=== PATIENT | female | born 1945 | race Caucasian/White ===

== ENCOUNTER → 2016-07-10 | Outpatient (CLI) | payer OTHER | LOC: CIMAGING 09:09 | PROVIDERS: ATTEND Internal Medicine Pulmonary Disease | DX: Z09 Encounter for follow-up examination after completed treatment for conditions other than malignant neoplasm (principal); J84.9 Interstitial pulmonary disease, unspecified; Z87.891 Personal history of nicotine dependence | CPT/HCPCS: 71250-PO ==

== ENCOUNTER 2016-10-07 13:16 | Day surgery (SDC) | payer OTHER ==
[2016-10-07 13:49] VITALS: PULSE 83; TEMP 97.7
[2016-10-07] MEDS ORDERED: NS 500 ML IV ONE (13:49)
[2016-10-07] MEDS ORDERED: LIDOCAINE 1% 300 MG/30 ML SDV ONE (13:50)
[2016-10-07] MEDS ORDERED: EPINEPHrine 1 MG/10 ML SYR IVP ONE (13:50)
[2016-10-07] MEDS ORDERED: fentaNYL 100 MCG/2 ML INJ ONE (13:51)
[2016-10-07] MEDS ORDERED: MIDAZOLAM 2 MG/2 ML VIAL ONE ×2 (13:51)
[2016-10-07] MEDS ORDERED: ALBUTEROL 3 ML DEYVIAL ONE (13:52)
[2016-10-07] MEDS ORDERED: LIDOCAINE 2% JELLY 5 ML TUBE ONE (13:52)
[2016-10-07] MEDS ORDERED: ALBUTEROL 3 ML DEYVIAL IH ONE (14:13)
[2016-10-07] MEDS ORDERED: fentaNYL 100 MCG/2 ML INJ IVP ONE (15:20)
[2016-10-07] MEDS ORDERED: MIDAZOLAM 2 MG/2 ML VIAL IVP ONE (15:20)
[2016-10-07 17:11] VITALS: BP 114/75; RESP 27; O2SAT 94
--- NOTE | 2016-10-07 22:08 | GPN ---
[f rep st] PROCEDURE NOTE Corrected report DATE OF PROCEDURE: 10/07/2016 NAME OF PROCEDURE: Bronchoscopy. INDICATIONS: Interstitial lung disease. DESCRIPTION OF PROCEDURE: Procedure was done in the endoscopy unit in a negative pressure room. Informed consent was obtained from the patient, and 95 masks were worn. Topical anesthesia included 5 cc of 4% lidocaine to the oropharynx and approximately 25 cc of 1% lidocaine to the vocal cords and tracheobronchial tree. Intravenous sedation included 4 mm of Versed and 100 mcg of Fentanyl. Appropriate time-out was performed prior to the procedure. Fiberoptic bronchoscope was passed via bite block orally into the larynx. The vocal cords were identified. The vocal cords were normal, and moved normally with cough and respiration. The bronchoscope was then advanced into the trachea and into the lower tracheobronchial tree bilaterally. All areas were observed to at least 1st subsegmental level. Anatomy was normal bilaterally. There was no significant mucosal erythema or edema. There were no significant secretions. Transbronchial biopsies were taken under fluoroscopic guidance from the right lower lobe and right middle lobe. There were no complications. Bleeding was minor, less than a few cc. All bleeding stopped by the end of the procedure. Chest x-ray following the procedure showed no evidence of a pneumothorax. Some increased infiltrate in the area of her biopsy secondary to blood was seen. FINDINGS: 1. Normal endobronchial anatomy. 2. Interstitial lung disease, query etiology. Pathology will be awaited. /[id number]/MODL Ignacio acc#, 10/08/16, chante LIMA
== END 2016-10-07 16:59 | disposition home or self-care (01) ==
LOC: FSGY 13:16
PROVIDERS: ATTEND Internal Medicine Pulmonary Disease
PROC: 0BB58ZX Excision of Right Middle Lobe Bronchus, Via Natural or Artificial Opening Endoscopic, Diagnostic (ICD-10-PCS; principal; 2016-10-07 14:30)
PROC: 0BB48ZX Excision of Right Upper Lobe Bronchus, Via Natural or Artificial Opening Endoscopic, Diagnostic (ICD-10-PCS; principal; 2016-10-07 14:30)
DX: J84.9 Interstitial pulmonary disease, unspecified (principal); K21.9 Gastro-esophageal reflux disease without esophagitis
CPT/HCPCS: J2250; J3010

== ENCOUNTER → 2016-11-11 | Outpatient (CLI) | payer OTHER | LOC: FIMAGING 09:55 | PROVIDERS: ATTEND Internal Medicine Pulmonary Disease | DX: J84.9 Interstitial pulmonary disease, unspecified (principal) ==

== ENCOUNTER 2016-11-30 05:44 | Inpatient (IN) | payer OTHER ==
[2016-11-30] MEDS ORDERED: ceFAZolin 2 GM/DEXTROSE 100 ML IV ONE (06:00)
[2016-11-30] MEDS ORDERED: LR 1,000 ML IV ONE (06:22)
[2016-11-30] MEDS ORDERED: LIDOCAINE 1% 2 ML INJ ID PRN (06:22)
--- NOTE | 2016-11-30 07:04 | PDANEPAE ---
ANE History of Present Illness 70 year old female w/ PMHx of HTN (treated), hypothyroidism (treated), GERD, bulging disk at L4-L5 (chronic, under treatment) and ILD presents for VATS lung biopsy. ANE Past Medical History - Cardiovascular History Hx Hypertension: Yes Hx Arrhythmias: No Hx Chest Pain: No Hx Coronary Artery / Peripheral Vascular Disease: No Hx CHF / Valvular Disease: No Hx Palpitations: No Cardiovascular History Comment: "palpitations- related to lack of oxygen" on O2 now-diminished - Pulmonary History Hx COPD: No Hx Asthma/Reactive Airway Disease: No Hx Recent Upper Respiratory Infection: No Hx Oxygen in Use at Home: No Hx Sleep Apnea: No Sleep Apnea Screening Result - Last Documented: Negative Pulmonary History Comment: Interstitial lung disease. SOB w/exertional activities. Dr villatoro - Neurologic History Hx Cerebrovascular Accident: No Hx Seizures: No Hx Dementia: No - Endocrine History Hx Diabetes: No Hypothyroid: Yes Hyperthyroid: No Obesity: no Endocrine History Comment: hypothyroid - Renal History Hx Renal Disorders: No - Liver History Hx Hepatic Disorders: No - Neurological & Psychiatric Hx Hx Neurological and Psychiatric Disorders: Yes Neurological / Psychiatric History Comment: Sees chiropractor 2x/mo per bulging L4/L5 disc -chronic. - Cancer History Hx Cancer: No - Congenital Disorder History Hx Congenital Disorders: No - GI History GERD: mild Hx Gastrointestinal Disorders: Yes Gastrointestinal History Comment: GERD. Loose stool w/prednisone. 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 Nile. seasonal allergies - Chronic Pain History Chronic Pain: No - Surgical History Prior Surgeries: R knee scope,. breast augmentation;. breast implants removed ;. Karen. Hysterectmy/BSO. parathyroidectomy. thumb sx ANE Review of Systems Review of Systems: - Exercise capacity Exercise capacity: >=4 METS METS (RN): 4 METS ANE Patient History - Allergies Allergies/Adverse Reactions: SEASONAL Allergy (Uncoded 07/06/11 18:42) Other-Enter Comments - Home Medications Home medications: home medication list seen and reviewed Home Medications: Levothyroxine [Synthroid 75 mcg (*)] 75 mcg PO DAILY06 09/30/16 [Last Taken 09:00] Ranitidine HCl [Zantac] 150 mg PO DAILY18 09/30/16 [Last Taken 11/29/16 19:00] amLODIPine BESYLATE [Norvasc 5 mg (*)] 5 mg PO DAILY18 09/30/16 [Last Taken 19:00] Esomeprazole Mag Trihydrate [Nexium] 40 mg PO DAILY 11/27/16 [Last Taken 08:00] Estradiol [Estradiol 1 MG (*)] 1 mg PO DAILY18 11/27/16 [Last Taken 11/29/16 22: 00] Loratadine [Claritin 10 mg] 10 mg PO DAILY18 11/27/16 [Last Taken 11/29/16 19:00 ] RX: predniSONE 60 mg PO DAILY 11/27/16 [Last Taken 11/29/16 05:00] Tears/Dextran 70/Hypromellose [Natural Balance Tears (*)] 1 drop EACHEYE DAILY PRN 11/27/16 [Last Taken 11/29/16 08:00] - NPO status NPO Status: no food or drink >8 hours NPO Since - Liquids (Date): 11/29/16 NPO Since - Liquids (Time): 23:30 NPO Since - Solids (Date): 11/29/16 NPO Since - Solids (Time): 22:00 - Anes Hx Anes Hx: no prior problems - Smoking Hx Smoking Status: Never smoked Marijuana use: No - Alcohol Use Alcohol Use: Rarely - Family Anes Hx Family Anes Hx: neg - N/A ANE Labs/Vital Signs - Vital Signs Vital Signs: reviewed preoperatively; see RN documention for details Blood Pressure: 140/87 Heart Rate: 88 Respiratory Rate: 14 O2 Sat (%): 93 Height: 165.1 cm Weight: 67.585 kg ANE Physical Exam - Airway Neck exam: FROM Mallampati Score: Class 2 Mouth exam: normal dental/mouth exam - Pulmonary Pulmonary: no respiratory distress - Cardiovascular Cardiovascular: regular rate and rhythym - ASA Status ASA Status: III ANE Anesthesia Plan Anesthesia Plan: general endotracheal anesthesia Specialized Airway: double lumen tube Total IV Anesthesia: No
[2016-11-30] MEDS ORDERED: MIDAZOLAM 2 MG/2 ML VIAL IVP ONE (07:05)
[2016-11-30] MEDS ORDERED: MIDAZOLAM 2 MG/2 ML VIAL ONE (07:08)
--- NOTE | 2016-11-30 07:10 | PDHPUP ---
History & Physical Update H&P update statement: This history and physical update is based on an assessment of the patient which was completed after admission or registration (within 24 hours), but prior to the surgery/procedure.
[2016-11-30] MEDS ORDERED: PROPOFOL 200 MG/20 ML VIAL ONE (07:14)
[2016-11-30] MEDS ORDERED: LIDOCAINE 2% 5 ML SDV ONE (07:15)
[2016-11-30] MEDS ORDERED: ROCURONIUM 50 MG/5 ML VIAL ONE (07:15)
[2016-11-30] MEDS ORDERED: fentaNYL 100 MCG/2 ML INJ ONE ×3 (07:15→10:43)
[2016-11-30] MEDS ORDERED: SUGAMMADEX SODIUM 200 MG/2 ML VIAL IVP ONE (08:08)
[2016-11-30] MEDS ORDERED: KETOROLAC 30 MG/1 ML SDV ONE (08:08)
[2016-11-30] MEDS ORDERED: ONDANSETRON 4 MG/2 ML VIAL ONE (08:08)
[2016-11-30] MEDS: BUPIVACAINE 0.25% 30 ML SDV ONE ×2 (08:20→11:17)
[2016-11-30] MEDS ORDERED: ONDANSETRON 4 MG/2 ML VIAL IVP PRN ×2 (08:43→08:55)
[2016-11-30] MEDS ORDERED: NS 1,000 ML IV SCH (08:45)
[2016-11-30] MEDS ORDERED: NALOXONE HCL 0.4 MG/ML INJ IVP PRN (08:55)
[2016-11-30] MEDS ORDERED: LR 500 ML IV PRN (08:55)
[2016-11-30] MEDS ORDERED: HYDROmorphONE/DILAUDID 1 MG/ML INJ IVP PRN (08:55)
[2016-11-30] MEDS ORDERED: OXYCODONE/APAP 5/325 TAB PO PRN (08:55)
[2016-11-30] MEDS ORDERED: LACTULOSE 20 GM/30 ML UDCUP PO PRN (08:57)
[2016-11-30] MEDS ORDERED: ACETAMINOPHEN 500 MG TAB PO PRN (08:57)
[2016-11-30] MEDS ORDERED: MAGNESIUM HYDROXIDE 30 ML UDCUP PO PRN (08:57)
[2016-11-30] MEDS ORDERED: BISACODYL 10 MG SUPP PR PRN (08:57)
[2016-11-30] MEDS ORDERED: POLYETHYLENE GLYCOL 3350 17 GM PKT PO PRN (08:57)
[2016-11-30] MEDS ORDERED: traMADol 50 MG TAB PO PRN (08:57)
[2016-11-30] MEDS: fentaNYL 100 MCG/2 ML INJ IVP PRN ×3 (09:07→10:45)
--- NOTE | 2016-11-30 09:31 | POSTANESTH ---
Post Anesthetic Evaluation Cardiovascular Status: Normal, Stable, Similar to Pre-Op Cond Respiratory Status: Normal, Stable, Similar to Pre-op Cond. Level of Consciousness/Mental Status: Can Participate in Eval Pain Control: Adequate, Prn Tx Ordered Nausea/Vomiting Control: Adequate, Prn Tx Ordered Complications Possibly Related to Anesthesia: None Noted
--- NOTE | 2016-11-30 09:37 | GOP ---
[f rep st] OPERATIVE REPORT DATE OF OPERATION: 11/30/2016 SURGEON: Alexander Hester DO ZUMBA INSTRUCTOR: Genie Nair PA-C. ANESTHESIOLOGIST: Nader Spence MD PREOPERATIVE DIAGNOSIS: Interstitial lung disease of uncertain etiology. POSTOPERATIVE DIAGNOSIS: Interstitial lung disease of uncertain etiology. PROCEDURE PERFORMED: Left video-assisted thoracoscopic lung biopsy x2 from the upper and lower lobes . FINDINGS: DESCRIPTION OF PROCEDURE: Patient was consented for surgery and brought to the operating room. A do uble-lumen endotracheal tube was placed. Three portals were placed in the lateral chest wall under c amera guidance. A markedly abnormal lung was identified. The lingular section was excised with a st apler without evidence of air leak or bleeding. We then biopsied the anterior portion of the left lo wer lobe as well, which was markedly abnormal. No bleeding was encountered. The chest was irrigated a single chest tube was placed. 0.25% Marcaine with epinephrine was used to infiltrate the intercost al spaces. A Pleur-evac was connected. There was no air leak at the completion of procedure. Wound s were closed in standard fashion. Patient was returned to the recovery room in stable condition. /[id number]/MODL
[2016-11-30] MEDS: THROMBIN(HUM PLAS)/FIBRINOG/CA 5 ML VIAL TP ONE ×2 (11:18→13:13)
[2016-11-30] MEDS: HYDROCODONE/APAP 5/325 TAB PO PRN ×3 (12:26→20:53)
[2016-11-30] MEDS: KETOROLAC 15 MG/1 ML SDV IVP SCH ×2 (13:26→17:39)
[2016-11-30] MEDS ORDERED: TEARS/DEXTRAN 70/HYPROMELLOSE 15 ML OPHT.BTL EACHEYE PRN (14:00)
[2016-11-30] MEDS ORDERED: HYDROCORTISONE 100 MG/2 ML VIAL IVP ONE (16:00)
[2016-11-30] MEDS: ceFAZolin 2 GM/DEXTROSE 100 ML IV SCH ×2 (16:20→21:10)
--- NOTE | 2016-11-30 16:20 | ASMTCMCOM ---
CM Note CM Note Notes: 11/30/2016 Case Management Note Reviewed chart. Pt admitted for VATS biopsy. No case management d/c needs identfiied d/t pt age and marital status. No therapy evals ordered. Case Management d/c poc: home independent when medically stable. Case Management available if needs change. Date Signed: 11/30/2016 04:20 PM Electronically Signed By:Liz Ivy RN
[2016-11-30] MEDS ORDERED: amLODIPine BESYLATE 5 MG TAB PO SCH (18:00)
[2016-11-30] MEDS ORDERED: NON-FORMULARY NEW DRUG (Ranitidine Hcl [Zantac] 150 MG) PO SCH (18:00)
[2016-11-30] MEDS ORDERED: NON-FORMULARY NEW DRUG (Loratadine [Claritin 10 Mg] 10 MG) PO SCH (18:00)
[2016-11-30 19:30] VITALS: RESP 16
[2016-11-30] MEDS: SENNOSIDES/DOCUSATE SODIUM TAB PO SCH (20:48)
[2016-11-30] MEDS: HEPARIN 5,000 UNIT/0.5 ML SYR SC SCH ×2 (20:49→22:13)
[2016-12-01] MEDS: KETOROLAC 15 MG/1 ML SDV IVP SCH ×2 (00:27→06:26)
[2016-12-01 04:51] LABS: HEMATOCRIT 39.9 % (38.0-47.0); HEMOGLOBIN 13.4 g/dL (12.6-16.3); MEAN CELL HEMOGLOBIN 32.1 pg (27.9-34.1); MEAN CELL HEMOGLOBIN CONCENTR. 33.6 g/dL (32.4-36.7); MEAN CELL VOLUME 95.7 fL (81.5-99.8); RED BLOOD CELL COUNT 4.17 10^6/uL (4.18-5.33); RED CELL DISTRIBUTION WIDTH 12.6 % (11.5-15.2)
[2016-12-01 04:57] LABS: ANION GAP 7 mEq/L (8-16); CALCIUM 8.4 mg/dL (8.5-10.4); CARBON DIOXIDE 26 mEq/l (22-31); CHLORIDE 102 mEq/L (97-110); CREATININE 0.5 mg/dL (0.6-1.0); GLOMERULAR FILTRATION RATE > 60; GLUCOSE 89 mg/dL (70-100); POTASSIUM 4.2 mEq/L (3.5-5.2); SODIUM 135 mEq/L (134-144)
[2016-12-01] MEDS ORDERED: LEVOTHYROXINE 75 MCG TAB PO SCH (06:00)
[2016-12-01] MEDS: HEPARIN 5,000 UNIT/0.5 ML SYR SC SCH (06:26)
--- NOTE | 2016-12-01 08:03 | SOAPPROG ---
SOAP Progress Note Assessment/Plan: POD #1: Left VATS with upper and lower lung biopsies Interstitial lung disease/hypoxemia - Possible removal of CT later today - Continue O2 and prednisone - Pathology pending - SCDs/Lovenox SQ for DVT prophylaxis Acute blood loss anemia - Stable without the need for blood product transfusions Subjective: Feels well. Pain well-controlled. Able to take deep breaths. Slept well. Objective: Vital Signs Temp Pulse Resp BP Pulse Ox 36.8 C 68 16 121/71 H 97 12/01/16 04:00 12/01/16 04:00 12/01/16 04:00 12/01/16 04:00 12/01/16 04:00 Microbiology 11/30/16 08:10 Mycobacterial Smear (CRESENCIO) - Final Lung Left Upper Lobe - Tissue 11/30/16 08:10 Gram Stain - Final Lung - Tissue Laboratory Results 12/01/16 04:04 12/01/16 04:04 11/30/16 12/01/16 12/02/16 05:59 05:59 05:59 Intake Total 3545 Output Total 1383 83 Balance 2162 -83 Physical Exam - Physical Exam General Appearance: WD/WN, alert, no apparent distress EENT: No scleral icterus (R), No scleral icterus (L) Neck: normal inspection Respiratory: other (CT without air leak), No respiratory distress Cardiac/Chest: regular rate, rhythm Abdomen: No distended Skin: normal color, warm/dry Extremities: No pedal edema Neuro/Psych: no motor/sensory deficits, alert, normal mood/affect, oriented x 3 ICD10 Worksheet Patient Problems: Problems Problem Status Onset s/p LVATS lung biopsies Acute ~11/30/16 Chronic steroid use Chronic ILD (interstitial lung disease) Chronic
[2016-12-01 08:11] VITALS: BP 116/82; PULSE 74; TEMP 97.9; O2SAT 94
[2016-12-01] MEDS: SENNOSIDES/DOCUSATE SODIUM TAB PO SCH (08:48)
[2016-12-01] MEDS ORDERED: ENOXAPARIN 40 MG/0.4 ML SYR SC SCH (09:00)
[2016-12-01] MEDS ORDERED: ESOMEPRAZOLE MAG TRIHYDRATE 40 MG PO SCH (09:00)
[2016-12-01] MEDS ORDERED: predniSONE 20 MG TAB PO SCH (09:00)
--- NOTE | 2016-12-01 10:43 | PDDCSUM ---
Discharge Summary Discharge Summary: ADMISSION DATE: 12/01/16 DISCHARGE DATE: 12/02/16 ADMISSION DX: 1. Interstitial lung disease of unknown etiology DISCHARGE DX: 1. Interstitial lung disease of unknown etiology 2. Acute blood loss anemia PROCEDURES 12/01/16, Alexander Hester: 1. Left VATS with lung biopsies taken from upper and lower lobes HOSPITAL COURSE BY PROBLEM LIST 1. Interstitial lung disease of unknown etiology - s/p left VATS with biopsies taken from upper and lower lobes. Pathology pending. Continue prednisone and oxygen therapy as prescribed 2. Acute blood loss anemia - stable without the need for blood product transfusions. CONDITION Good DISPOSITION Home ACTIVITY Pt was instructed on sternal precautions, activity limitations, and which problems to call [facility] with. Please see Discharge Plan in chart for specifics. MEDICATIONS 1. Levothyroxine [Synthroid 75 mcg (*)] 75 mcg PO DAILY06 2. Ranitidine HCl [Zantac] 150 mg PO DAILY18 3. amLODIPine BESYLATE [Norvasc 5 mg (*)] 5 mg PO DAILY18 4. Esomeprazole Mag Trihydrate [Nexium] 40 mg PO DAILY 5. Estradiol [Estradiol 1 MG (*)] 1 mg PO DAILY18 6. Loratadine [Claritin 10 mg] 10 mg PO DAILY18 7. Tears/Dextran 70/Hypromellose [Natural Balance Tears (*)] 1 drop EACHEYE DAILY PRN 8. predniSONE 60 mg PO DAILY 9. Acetaminophen [Tylenol ES 500 mg (*)] 500 mg PO Q6HRS PRN 10. Ibuprofen 600 mg PO Q6 PRN 11. Oxygen as prescribed PENDING STUDIES/LABS 1. CXR prior to surgical follow-up F/U APPOINTMENTS 1. Alexander Hester: 12/08/16, 9:45 AM
[2016-12-01] MEDS ORDERED: Ranitidine Hcl [Zantac] 150 MG PO SCH (18:00)
[2016-12-01] MEDS ORDERED: LORATADINE 10 MG PO SCH (18:00)
[2016-12-01] MEDS ORDERED: ESTRADIOL 1 MG TAB PO SCH (18:00)
== END 2016-12-01 11:06 | disposition home or self-care (01) | DRG 167 ==
LOC: F3N 05:44 → F2W 10:58
PROVIDERS: ADMIT Thoracic Surgery (Cardiothoracic Vascular Surgery); ATTEND Thoracic Surgery (Cardiothoracic Vascular Surgery)
PROC: 0BBG4ZX Excision of Left Upper Lung Lobe, Percutaneous Endoscopic Approach, Diagnostic (ICD-10-PCS; principal; 2016-11-30 07:15)
PROC: 0BBJ4ZX Excision of Left Lower Lung Lobe, Percutaneous Endoscopic Approach, Diagnostic (ICD-10-PCS; principal; 2016-11-30 07:15)
DX: J84.9 Interstitial pulmonary disease, unspecified (principal); D62 Acute posthemorrhagic anemia; I10 Essential (primary) hypertension; E03.9 Hypothyroidism, unspecified; K21.9 Gastro-esophageal reflux disease without esophagitis; Z79.52 Long term (current) use of systemic steroids
CPT/HCPCS: J0171; J0690; J1650; J1885; J2250; J2405; J2704; J3010

== ENCOUNTER → 2016-12-07 | Outpatient (CLI) | payer OTHER | LOC: FIMAGING 12:12 | PROVIDERS: ATTEND Thoracic Surgery (Cardiothoracic Vascular Surgery) | DX: Z98.890 Other specified postprocedural states (principal) ==

== ENCOUNTER 2017-04-25 21:41 | Inpatient (IN) | payer OTHER ==
[2017-04-25] MEDS ORDERED: PANTOPRAZOLE SODIUM 40 MG VIAL IVP ONE (21:52)
[2017-04-25] MEDS ORDERED: NS 500 ML IV ONE (21:52)
--- NOTE | 2017-04-25 22:01 | EDPHY ---
H & P Time Seen by Provider: 04/25/17 21:52 HPI/ROS: HPI Shortness of breath, blood in stool. 71-year-old female by ambulance from home. This patient has a history of advancing idiopathic pulmonary fibrosis. She is oxygen dependent at home. Recently she has been requiring 6 L of oxygen by nasal cannula during the day and 5 L at night. She reports that in December she started a new medication called Ofev for her pulmonary fibrosis. This is an immune modulator. She reports that 1 of the side effects is diarrhea as well as stomach ulcerations. She reports that for the last 6 weeks she has had diarrhea. She reports today she noticed that she had blood on her toilet paper after an episode of this diarrhea. She also was more short of breath today despite 6 L of nasal cannula oxygen at home. On EMS arrival her pulse oximetry was in the 70s. She reports to me that while on 6 L her pulse oximetry got as low as in the 40s earlier today. ROS: Constitutional: No fever, no chills. No weakness. Eyes: No discharge. No changes in vision. ENT: No sore throat. No nasal congestion or rhinorrhea. Respiratory: No cough. As above. Cardiac: No chest pain, no palpitations. Gastrointestinal: No abdominal pain, no vomiting, as above. Genitourinary: No hematuria. No dysuria or increased frequency with urination. Musculoskeletal: No back pain. No neck pain. No myalgias or arthralgias. Skin: No rashes. Neurological: No headache. No focal weakness or altered sensation. Past medical history: Idiopathic pulmonary fibrosis, hypertension, hypothyroid. Her v block saw operator is Dr. Audi Gillis. Social history: Nonsmoker. No alcohol. She is . Her is on the way to the emergency department currently. Physical Exam: General Appearance: Alert, dyspneic, mildly cyanotic. This patient is responding to questions appropriately in short sentences. This patient appears well-hydrated and well-nourished. Eyes: Pupils equal and round no pallor or injection. No lid edema, erythema or injection. ENT, Mouth: Mucous membranes are moist. The pharyngeal tissues are unremarkable. No edema or swelling. No asymmetry suggestive of abscess. No erythema or exudates. Respiratory: Lung sounds are shallow and distant bilaterally. She is tachypneic at 24. Cardiovascular: Regular rate and rhythm. No murmur appreciated. Gastrointestinal: Abdomen is soft and nontender, no masses, bowel sounds normal. No focal tenderness at McBurney's point. No Wong sign. Rectal exam: Neurological: Motor sensory function is grossly intact. Cranial nerves are normal. Gait is normal. Skin: Warm and dry, no rashes. Musculoskeletal: Neck is supple and nontender. Extremities are symmetrical. All joints range without pain or impingement. Psychiatric: No agitation. No depression. Database: EKG: EKG time is 10:25 p.m.; EKG shows a narrow complex normal sinus rhythm with a ventricular rate of 88. Left anterior fascicular block noted. Left ventricular hypertrophy noted. The MN, QRS, QT intervals are within normal limits. Nonspecific T-wave abnormalities noted in the inferior leads. There are no ST- T wave changes indicative of ischemic or injury pattern. No evidence of right heart strain. Interpreted by me. Imaging: Chest x-ray PA and lateral; the cardiac mediastinal silhouette is unremarkable. Bilateral infiltrative process, worse on the left versus the right. Likely pneumonia superimposed over changes from pulmonary fibrosis. No other acute cardiopulmonary disease process noted. Interpreted by me. Procedures: Emergency department course: IV was placed, vital signs reviewed. Only SIRS criteria is tachypnea. She otherwise does not meet definition of sepsis. Chest x-ray and EKG obtained. After review of her chest x-ray she was started on IV Solu-Medrol as well as IV Levaquin for treatment of pneumonia with underlying pulmonary fibrosis exacerbation. Blood cultures have been obtained. Respiratory pathogen panel has also been ordered. 11:00 p.m., spoke with her v block saw operator Dr. Audi Gillis. Case reviewed with him in detail. He agrees with above management. Plan will be to admit to the step-down unit under the care of the hospitalist service. 11:05 p.m., patient re-evaluated. She feels comfortable at this time. No chest pain. Results of her workup at this time discussed with her and family. Diagnosis of pneumonia discussed. Antibiotic choice and reasoning for Solu- Medrol administration discussed with family. Plan for admission reviewed. All of their questions were answered. 11:10 p.m., discussed case with on-call hospitalist Dr. Pearce. Case discussed in detail with her. She will see this patient in the emergency department shortly. Results of respiratory pathogen panel are currently pending. Troponin noted to be elevated at 1.8. This is likely secondary to pulmonary hypertension as well as hypoxia. She has had no complaint of chest pain. Her EKG does not show any acute injury pattern. Nonspecific diffuse T-wave inversions noted. Dr. Pearce to follow up on results of respiratory pathogen panel as well as venous lactate. The patient's remaining emergency department course under my care has been uneventful. She will be admitted to the step- down unit shortly. Differential Diagnosis: The differential diagnosis on this patient includes but is not limited to pneumonia, pulmonary fibrosis exacerbation, elevated troponin, hematochezia. Acute upper gastrointestinal bleeding, acute coronary syndrome unlikely. This represents a partial list of diagnoses considered. These considerations are based on history, physical exam, past history, reassessment and diagnostic testing. Smoking Status: Never smoked Constitutional: Initial Vital Signs Temperature (C) 36.7 C 04/25/17 21:51 Heart Rate 96 04/25/17 21:51 Respiratory Rate 30 H 04/25/17 21:51 Blood Pressure 125/114 H 04/25/17 21:51 O2 Sat (%) 94 04/25/17 21:51 O2 Delivery Mode Non-Rebreather Mask O2 (L/minute) 15 Allergies/Adverse Reactions: SEASONAL Allergy (Uncoded 07/06/11 18:42) Other-Enter Comments Home Medications: Medication Instructions Recorded Levothyroxine [Synthroid 75 mcg 75 mcg PO DAILY06 09/30/16 (*)] Ranitidine HCl [Zantac] 150 mg PO HS 09/30/16 amLODIPine BESYLATE [Norvasc 5 mg 5 mg PO HS 09/30/16 (*)] Esomeprazole Mag Trihydrate 40 mg PO DAILY 11/27/16 [Nexium] predniSONE 40 mg PO DAILY 11/27/16 Albuterol [Proventil Inhaler HFA 1 - 2 puffs IH Q4H PRN 04/26/17 (*)] Aspirin [Aspirin 81mg (*)] 81 mg PO HS 04/26/17 Cholecalciferol Vit D3 [Vitamin D3 2,000 units PO DAILY 04/26/17 2000 units tab (OTC)] Codeine Phosphate/Guaifenesin 10 ml PO Q4HRS PRN 04/26/17 [Robafen AC Oral Solution] Medical Decision Making - Data Points Laboratory Results: Laboratory Results 04/25/17 21:51 04/25/17 21:51 Medications Given: Albuterol/Ipratropium (Duoneb) 3 ml IH QID [facility] Stop: 10/23/17 05:59 Last Admin: 04/27/17 11:09 Dose: 3 ml Amlodipine Besylate (Norvasc) 5 mg PO HS [facility] Stop: 10/23/17 20:59 Last Admin: 04/26/17 20:50 Dose: 5 mg Aspirin (Aspirin) 81 mg PO HS [facility] Stop: 10/23/17 20:59 Last Admin: 04/26/17 20:49 Dose: 81 mg Benzonatate (Tessalon Pearles) 100 mg PO TID PRN PRN Reason: Cough, Mild Stop: 10/23/17 00:14 Last Admin: 04/27/17 09:32 Dose: 100 mg Cholecalciferol (Vitamin D) 2,000 units PO DAILY [facility] Stop: 10/24/17 08:59 Last Admin: 04/27/17 09:32 Dose: 2,000 units Enoxaparin Sodium (Lovenox) 40 mg SC DAILY [facility] Stop: 10/24/17 11:44 Last Admin: 04/27/17 12:00 Dose: 40 mg Guaifenesin/Dextromethorphan (Robitussin Dm Oral Liquid) 10 ml PO Q4HRS PRN PRN Reason: Cough, Moderate Stop: 10/23/17 09:47 Last Admin: 04/27/17 11:26 Dose: 10 ml Sodium Chloride (Ns) 1,000 mls @ 75 mls/hr IV CONT [facility] Stop: 10/22/17 23:14 Last Admin: 04/26/17 10:29 Dose: 1,000 mls Levofloxacin/Dextrose (Levaquin 750 Mg (Premix)) 150 mls @ 100 mls/hr IV DAILY@ 2200 [facility] Stop: 05/26/17 21:59 Last Admin: 04/26/17 21:00 Dose: 150 mls Levothyroxine Sodium (Synthroid) 75 mcg PO DAILY06 [facility] Stop: 10/24/17 05:59 Last Admin: 04/27/17 04:29 Dose: 75 mcg Methylprednisolone Sodium Succinate (Solu-Medrol) 60 mg IVP Q12HRS [facility] Stop: 10/23/17 08:59 Last Admin: 04/27/17 09:32 Dose: 60 mg Morphine Sulfate (Morphine) 2 - 4 mg IVP Q3HRS PRN PRN Reason: Pain, Breakthrough Stop: 05/06/17 00:13 Last Admin: 04/27/17 04:29 Dose: 2 mg Pantoprazole Sodium (Protonix) 40 mg PO DAILY [facility] Stop: 10/24/17 08:59 Last Admin: 04/27/17 09:32 Dose: 40 mg Discontinued Medications Sodium Chloride (Ns) 500 mls @ 1,000 mls/hr IV EDNOW ONE PRN Reason: Protocol Stop: 04/25/17 22:21 Last Admin: 04/25/17 22:06 Dose: 500 mls Levofloxacin/Dextrose (Levaquin 750 Mg (Premix)) 150 mls @ 100 mls/hr IV EDNOW ONE PRN Reason: Protocol Stop: 04/26/17 00:04 Last Admin: 04/25/17 22:40 Dose: 150 mls Magnesium Sulfate (Magnesium Sulf 2 Gm (Premix)) 50 mls @ 50 mls/hr IV ONCE ONE Stop: 04/26/17 12:11 Last Admin: 04/26/17 11:30 Dose: 50 mls Methylprednisolone Sodium Succinate (Solu-Medrol) 125 mg IVP EDNOW ONE Stop: 04/25/17 22:50 Last Admin: 04/25/17 23:16 Dose: 125 mg Pantoprazole Sodium (Protonix) 80 mg IVP EDNOW ONE Stop: 04/25/17 21:53 Last Admin: 04/25/17 22:07 Dose: 80 mg Potassium Chloride (Klor-Con) 40 meq PO ONCE ONE Stop: 04/26/17 10:46 Last Admin: 04/26/17 10:56 Dose: 40 meq Departure - Departure Disposition: [facility] Acute Clinical Impression: Pneumonia, Hypoxia, Elevated troponin, Hematochezia, Pulmonary fibrosis
[2017-04-25] MEDS ORDERED: PANTOPRAZOLE SODIUM 40 MG VIAL ONE (22:08)
[2017-04-25 22:20] LABS: PLATELET COUNT 459 10^3/uL (150-400)
--- NOTE | 2017-04-25 22:27 | CPEKG ---
Heart Rate: 88 RR Interval: 682 P-R Interval: 136 QRSD Interval: 102 QT Interval: 408 QTC Interval: 494 P [place]: 41 QRS [place]: -40 T Wave [place]: -19 EKG Severity - ABNORMAL ECG - EKG Impression: SINUS RHYTHM EKG Impression: LEFT ANTERIOR FASCICULAR BLOCK EKG Impression: LEFT VENTRICULAR HYPERTROPHY EKG Impression: NONSPECIFIC T ABNORMALITIES, INFERIOR LEADS EKG Impression: BORDERLINE PROLONGED QT INTERVAL Electronically Signed By: Yogesh Mcbride 25-Apr-2017 23:22:34
[2017-04-25 22:29] LABS: INR 1.09 (0.83-1.16); PROTIME(PATIENT) 14.3 SEC (12.0-15.0)
[2017-04-25] MEDS ORDERED: methylPREDNISolone SOD SUCC 125 MG/2 ML VIAL IVP ONE (22:49)
[2017-04-25] MEDS ORDERED: ALBUTEROL 3 ML DEYVIAL IH PRN (23:13)
[2017-04-25] MEDS ORDERED: ONDANSETRON 4 MG/2 ML VIAL IVP PRN (23:13)
[2017-04-25] MEDS ORDERED: ACETAMINOPHEN 325 MG TAB PO PRN (23:13)
--- NOTE | 2017-04-25 23:32 | PDGENHP ---
History and Physical - Chief Complaint shortness of breath - History of Present Illness Source-patient provides history appears reliable. EMR reviewed and case discussed with ED provider. HPI - this is a pleasant 71-year-old female with past medical history significant for idiopathic pulmonary fibrosis, hypothyroidism, HTN, GERD who presents emergency department today with complaints of progressively worsening dyspnea. Patient reports that she has had increased cough productive of clear phlegm for the last several days. She has also had increasing shortness of breath with requirements increased her oxygen up to 6 L. Patient has had been put on azithromycin and oral steroids by her primary aquatics lifeguard Dr. Audi Gillis. Patient reports that she has continued to have low-grade fevers at home 99-100. Positive chills. Positive night sweats. Positive cough with clear phlegm production. Prior to being placed on azithromycin patient reports that her sputum was a green color. Patient reports likely exposures to sick contacts that she has been in out of the hospital the last several weeks for cardiac evaluation. She did undergo a right heart catheterization on approximately 1-2 weeks ago at [facility] as well as she underwent stress testing. Patient does report clean coronaries and anal stress test. Patient also reports several weeks of diarrhea which she associates with having been started on off of immuno modulation therapy for her pulmonary fibrosis. Today patient reports that she had some minimal amount of red blood with wiping. No gretchen blood in her stool. He she has continued to have chronic diarrhea since initiation of off of therapy. She denies any abdominal pain or cramping. She reports the diarrhea is watery in nature. History Information - Allergies/Home Medication List Allergies/Adverse Reactions: SEASONAL Allergy (Uncoded 07/06/11 18:42) Other-Enter Comments Home Medications: Levothyroxine [Synthroid 75 mcg (*)] 75 mcg PO DAILY06 09/30/16 [Last Taken 09:00] Ranitidine HCl [Zantac] 150 mg PO DAILY18 09/30/16 [Last Taken 11/29/16 19:00] amLODIPine BESYLATE [Norvasc 5 mg (*)] 5 mg PO DAILY18 09/30/16 [Last Taken 19:00] Esomeprazole Mag Trihydrate [Nexium] 40 mg PO DAILY 11/27/16 [Last Taken 08:00] Estradiol [Estradiol 1 MG (*)] 1 mg PO DAILY18 11/27/16 [Last Taken 11/29/16 22: 00] Loratadine [Claritin 10 mg] 10 mg PO DAILY18 11/27/16 [Last Taken 11/29/16 19:00 ] Tears/Dextran 70/Hypromellose [Natural Balance Tears (*)] 1 drop EACHEYE DAILY PRN 11/27/16 [Last Taken 11/29/16 08:00] predniSONE 60 mg PO DAILY 11/27/16 [Last Taken 11/29/16 05:00] I have personally reviewed and updated: family history, medical history, social history, surgical history - Past Medical History Additional medical history: Idiopathic pulmonary fibrosis, chronic hypoxic respiratory failure on supplemental oxygen. Hypothyroidism, HTN, GERD, seasonal allergies, lichen sclerosis vulva, [place]. - Surgical History Additional surgical history: VATS, stress test with the right heart catheterization, right knee arthroscopy, cholecystectomy, hysterectomy BSO, parathyroidectomy, thumb surgery, bilateral breast augmentation - Family History Additional family history: Paternal grandmother with CVA , mother with dementia and supranuclear palsy , paternal grandfather with history of hypertension - Social History Smoking Status: Never smoked Alcohol Use: None Drug Use: None Additional social history: Patient is lives with her . Code status is full Review of Systems Review of Systems: ROS: 10pt was reviewed & negative except for what was stated in HPI & below Constitutional: Reports: chills, fever, other (Night sweats) EENMT: Reports: nose congestion. Denies: blurred vision, sore throat Cardiac: Reports: chest pain (Pleuritic with coughing). Denies: edema, palpitations Respiratory: Reports: cough, shortness of breath Gastrointestinal: Reports: diarrhea (No melena or hematochezia). Denies: vomitting, nausea Genitourinary: Denies: dysuria, hematuria Muscolosketal: Reports: no symptoms Skin: Reports: no symptoms Neurological: Reports: no symptoms Hematologic/Lymphatic: Reports: no symptoms Physical Exam Physical Exam: Selected Entries 04/25/17 21:51 Blood Pressure Automatic Method Heart Rate 96 Respiratory 30 H Rate O2 Sat (%) 94 Temperature (C) 36.7 C Blood Pressure 125/114 H Mean Arterial 117 H Pressure (MAP) O2 (L/minute) 15 O2 Delivery Non-Rebreather Mode Mask Temperature Oral Source Temp Pulse Resp BP Pulse Ox 36.7 C 96 30 H 126/79 H 90 L 04/25/17 21:51 04/25/17 23:00 04/25/17 23:00 04/25/17 23:00 04/25/17 23:00 Constitutional: other (Patient initially no acute distress. She is a increased work of breathing with coughing fit. ) Eyes: PERRL, anicteric sclera, EOMI Ears, Nose, Mouth, Throat: dry mucous membranes, other (No discharge) Cardiovascular: regular rate and rhythym, no murmur, rub, or gallop, No edema Peripheral Pulses: 2+: dorsalis-pedis (R), dorsalis-pedis (L) Respiratory: expiratory wheeze (Right lower lung field with occasional wheeze), inspiratory crackles, other (Mild increased work of breathing. Slightly increased a coughing fit with the 7), No no respiratory distress, No clear to auscultation Gastrointestinal: normoactive bowel sounds, soft, non-tender abdomen, no palpable masses, No guarding, No distension Genitourinary: no bladder tenderness, No perry in urethra Skin: warm (Patient's face is flushed) Musculoskeletal: other (Patient moves all extremities. She is able to sit up independently.), No generalized weakness Neurologic: AAOx3, sensation intact bilaterally, other (Grossly nonfocal exam), No facial droop Psychiatric: interacting appropriately, not anxious, not encephalopathic, thought process linear Lab Data & Imaging Review 04/25/17 21:51 04/25/17 21:51 WBC 7.02 10^3/uL (3.80-9.50) 04/25/17 21:51 RBC 5.18 10^6/uL (4.18-5.33) 04/25/17 21:51 Hgb 16.3 g/dL (12.6-16.3) 04/25/17 21:51 Hct 47.5 % (38.0-47.0) H 04/25/17 21:51 MCV 91.7 fL (81.5-99.8) 04/25/17 21:51 MCH 31.5 pg (27.9-34.1) 04/25/17 21:51 MCHC 34.3 g/dL (32.4-36.7) 04/25/17 21:51 RDW 11.5 % (11.5-15.2) 04/25/17 21:51 Plt Count 459 10^3/uL (150-400) H 04/25/17 21:51 MPV 9.5 fL (8.7-11.7) 04/25/17 21:51 Neut % (Auto) 86.0 % (39.3-74.2) H 04/25/17 21:51 Lymph % (Auto) 7.0 % (15.0-45.0) L 04/25/17 21:51 Day % (Auto) 6.0 % (4.5-13.0) 04/25/17 21:51 Eos % (Auto) 0.0 % (0.6-7.6) L 04/25/17 21:51 Baso % (Auto) 0.1 % (0.3-1.7) L 04/25/17 21:51 Nucleat RBC Rel Count 0.0 % (0.0-0.2) 04/25/17 21:51 Absolute Neuts (auto) 6.04 10^3/uL (1.70-6.50) 04/25/17 21:51 Absolute Lymphs (auto) 0.49 10^3/uL (1.00-3.00) L 04/25/17 21:51 Absolute Monos (auto) 0.42 10^3/uL (0.30-0.80) 04/25/17 21:51 Absolute Eos (auto) 0.00 10^3/uL (0.03-0.40) L 04/25/17 21:51 Absolute Basos (auto) 0.01 10^3/uL (0.02-0.10) L 04/25/17 21:51 Absolute Nucleated RBC 0.00 10^3/uL (0-0.01) 04/25/17 21:51 Immature Gran % 0.9 % (0.0-1.1) 04/25/17 21:51 Immature Gran # 0.06 10^3/uL (0.00-0.10) 04/25/17 21:51 PT 14.3 SEC (12.0-15.0) 04/25/17 21:51 INR 1.09 (0.83-1.16) 04/25/17 21:51 APTT 30.6 SEC (23.0-38.0) 04/25/17 21:51 VBG Lactic Acid 1.8 mmol/L (0.7-2.1) 04/25/17 23:10 Sodium 141 mEq/L (135-145) 04/25/17 21:51 Potassium 3.6 mEq/L (3.5-5.2) 04/25/17 21:51 Chloride 99 mEq/L (97-110) 04/25/17 21:51 Carbon Dioxide 29 mEq/l (22-31) 04/25/17 21:51 Anion Gap 13 mEq/L (8-16) 04/25/17 21:51 BUN 19 mg/dL (7-23) 04/25/17 21:51 Creatinine 0.5 mg/dL (0.6-1.0) L 04/25/17 21:51 Estimated GFR > 60 04/25/17 21:51 Glucose 127 mg/dL (70-100) H 04/25/17 21:51 Calcium 9.1 mg/dL (8.5-10.4) 04/25/17 21:51 Total Bilirubin 0.9 mg/dL (0.1-1.4) 04/25/17 21:51 Conjugated Bilirubin 0.5 mg/dL (0.0-0.5) 04/25/17 21:51 Unconjugated Bilirubin 0.4 mg/dL (0.0-1.1) 04/25/17 21:51 AST 25 IU/L (14-46) 04/25/17 21:51 ALT 40 IU/L (9-52) 04/25/17 21:51 Alkaline Phosphatase 81 IU/L (38-126) 04/25/17 21:51 Troponin I 1.180 ng/mL (0.000-0.034) H 04/25/17 21:51 NT-Pro-B Natriuret Pep 359 pg/mL (0-125) H 04/25/17 21:51 Total Protein 6.8 g/dL (6.3-8.2) 04/25/17 21:51 Albumin 3.6 g/dL (3.5-5.0) 04/25/17 21:51 Patient ABO/Rh A POSITIVE 04/25/17 21:51 Antibody Screen NEGATIVE 04/25/17 21:51 Imaging Review: AP chest x-ray 2208 hours. History: Dyspnea. Cough. Findings: Comparison to 12/07/2016. Heart size and pulmonary vasculature appear to be normal. There is decreased inspiration. Patchy bilateral infiltrates are suspected on top of chronic interstitial lung disease. There are no significant effusions. There is no pneumothorax. Osseous structures are intact. Impression: 1. Patchy bilateral infiltrates/pneumonia on top of chronic interstitial lung disease. 2. Decreased inspiration. EKG additional interpertation: NSR in the 80s. LAFB, LVH, T-wave inversions inferior leads. QTC 494 Assessment & Plan Assessment: #Acute on chronic hypoxic respiratory failure - patient with increased O2 requirements and persistent hypoxic episodes with moving and coughing fits. Patient will receive steroids and antibiotic transition to Levaquin IV. Dr. Audi Gillis was consulted from the emergency department with these recommendations. Will also leave albuterol and nebulizers p.r.n.. Continue with steroids and antibiotics IV. Full respiratory PCR panel has been ordered and pending. #ideopathic pulmonary fibrosis - steroids have been received in the ED and will plan to continue at this time. Continue supplemental oxygen and further plan as noted above. #bilateral Pneumonia (Acute) - respiratory PCR as noted above. Patient on Levaquin IV at this time. #Elevated troponin (Acute) - patient reports and normal cardiac cath at [facility] within the last 2 weeks. This likely represents type 2 [place] in setting of demand due to severe hypoxia. #Hematochezia (Acute) - single episode of bright red blood. She has no abdominal pain she is afebrile and on Levaquin. Patient has been having chronic diarrhea secondary to Ofev. Will check c diff as patient has been on antibiotic therapy since prior to admission. #Hyperglycemia-this is a nonfasting lab in addition patient has been on steroid taper. Will continue to monitor. No previous history. #hypothyroidism - resume patient's home medications #benign essential HT - blood pressures at this time acceptable. Will resume her amlodipine daily. #GERD - continue PPI per formulary. FEN - IV fluids overnight. Electrolyte monitoring and replacement p.r.n.. Diet as tolerated. PPX - SCDs. Lovenox. COR - full code Dispo - patient admitted to inpatient status on SDU for close cardiac and respiratory monitoring. In given she has recently been on antibiotics and outpatient steroids with exacerbation anticipate that she will require greater than 2 midnight stay.
[2017-04-26] MEDS: NS 1,000 ML IV SCH ×2 (00:33→10:29)
[2017-04-26] MEDS: BENZONATATE 100 MG CAP PO PRN ×3 (03:35→20:49)
[2017-04-26] MEDS: IPRATROPIUM/ALBUTEROL 3 ML DEYVIAL IH SCH ×4 (06:09→21:25)
[2017-04-26 06:30] LABS: PLATELET COUNT 344 10^3/uL (150-400)
--- NOTE | 2017-04-26 06:30 | PDMN ---
Medical Necessity Medical necessity: Patient meets inpatient criteria per physician note and MCG M -282 Pneumonia, Community Acquired (presents with worsening dyspnea and cough; fever and chills continue after started on azithromycin by her back filler operator; RR 30/sat 90% on 15 LPM per NRB mask; CXR shows bilat pneumonia; history of idiopathic pulmonary fibrosis, HTN, GERD, hypothyroidism; anticipated LOS > 2 midnights for IV steroids, IV antibiotics, scheduled nebs, increased O2 requirements.)
[2017-04-26] MEDS: methylPREDNISolone SOD SUCC 125 MG/2 ML VIAL IVP SCH ×2 (08:23→20:50)
--- NOTE | 2017-04-26 09:45 | ASMTCMCOM ---
CM Note CM Note Notes: 71yr old female admitted for SOB, Respiratory failure, Hypoxia, Pulm fribrosis. She has a hx of Hypothyroid, HTN, GERD. Patient lives with her . CM to follow for possible discharge needs. Date Signed: 04/26/2017 09:45 AM Electronically Signed By:Nyasia Marmolejo LCSW
--- NOTE | 2017-04-26 10:08 | HOSPPROG ---
Hospitalist Progress Note Assessment/Plan: #Acute on chronic hypoxemic resp failure: due to human metapneumovirus, CAP -Vapotherm, Levaquin, IV steroids, cough suppressant #NSTEMI: demand with hypoxemia. I personally reviewed YRN. She has cath 3/ with normal coronaries, mild HTN, no #Pulmonary fibrosis: 5-6L oxygen baseline. Followed by Dr. Gillis #Hypothyroidism: LT4 #Benign HTN #Hypomagnesium: on protocol #Hematochezia: 1 episode. Monitor H/H. C diff pending with recent abx #Diet: regular #DVT ppx: SCDs #Disp: warrants inpatient admission for acute hypoxia, requires IV abx, steroids Subjective: still very SOB, dry cough Objective: Vital Signs Temp Pulse Resp BP Pulse Ox 36.4 C 80 31 H 106/67 97 04/26/17 08:14 04/26/17 08:14 04/26/17 08:14 04/26/17 08:14 04/26/17 08:14 Microbiology 04/25/17 23:17 Respiratory Panel (PCR) - Final Nasal, Sinus - Swab Human Metapneumovirus Laboratory Results 04/26/17 06:15 04/26/17 06:15 04/25/17 04/26/17 04/27/17 05:59 05:59 05:59 Intake Total 1450 Output Total 400 Balance 1050 PT 14.3 SEC (12.0-15.0) 04/25/17 21:51 INR 1.09 (0.83-1.16) 04/25/17 21:51 - Physical Exam Constitutional: uncomfortable Eyes: PERRL Ears, Nose, Mouth, Throat: moist mucous membranes, hearing normal Cardiovascular: tachycardia Respiratory: rhonchi Gastrointestinal: normoactive bowel sounds, soft, non-tender abdomen Genitourinary: no bladder fullness Skin: warm Musculoskeletal: full muscle strength Neurologic: AAOx3, CN II-XII Intact ICD10 Worksheet Patient Problems: Problems Problem Status Onset Elevated troponin Acute Hematochezia Acute Hypoxia Acute Pneumonia Acute Pulmonary fibrosis Acute s/p LVATS lung biopsies Acute ~11/30/16 Chronic steroid use Chronic ILD (interstitial lung disease) Chronic
[2017-04-26] MEDS ORDERED: POTASSIUM Cl (KCl) 100 ML IV SCH (10:15)
[2017-04-26] MEDS: GUAIFENESIN/DM 10 ML UDCUP PO PRN ×2 (10:29→20:53)
[2017-04-26] MEDS ORDERED: POTASSIUM CL 20 MEQ TAB PO ONE (10:45)
[2017-04-26] MEDS ORDERED: MAGNESIUM SULF 2 GM/WATER 50 ML IV ONE (11:12)
[2017-04-26] MEDS ORDERED: PROTOCOL MAGNESIUM 1 DOSE IV PRN (11:13)
--- NOTE | 2017-04-26 14:36 | GCON ---
[f rep st] CONSULTATION EMERGENCY COMMUNICATIONS DISPATCHER CONSULTATION. REASON FOR ADMISSION: Acute respiratory failure. Idiopathic pulmonary fibrosis. Viral syndrome. HISTORY: The patient is an extremely pleasant 71-year-old white female with a past medical history o f idiopathic pulmonary fibrosis, chronic respiratory failure, gastroesophageal reflux disease, hypert ension, hypothyroidism. She presented to the emergency room after noticing increased cough, as well as increased oxygen requirements. She is also complaining of some low-grade fevers. She was brought to the emergency room, found to be markedly hypoxemic, and subsequently admitted. Viral cultures re vealed human metapneumovirus. She was brought to the intensive care unit, placed on high oxygen, as well as supplemental IV antibiotics. She feels markedly improved. She denies any chest pain, pleuri tic-type chest pain, or angina equivalent. No night sweats, but she does admit to fever. PAST MEDICAL HISTORY: Again, significant for hypothyroidism, hypertension, gastroesophageal reflux d isease, idiopathic pulmonary fibrosis requiring chronic supplemental oxygen. PAST SURGICAL HISTORY: Had a VATS, lung biopsy in November 2016. She also had a right knee arthrosco py, cholecystectomy, hysterectomy, parathyroidectomy, thumb surgery, and breast augmentation. FAMILY HISTORY: Significant for a stroke and dementia. SOCIAL HISTORY: Distant history of smoking. None for many years. No significant alcohol use. Work history, she is retired. She is , has excellent family support. HOME MEDICATIONS: Include levothyroxine, ranitidine, amlodipine, estradiol, loratadine, prednisone, as well as Ofev. PHYSICAL EXAM: VITAL SIGNS: Blood pressure is 106/67, pulse is 80, respirations are 31, temperature is 36.4, oxygen saturation 97% on 13 L non-rebreather. GENERAL: She is a well-developed, well-nour ished, elderly white female who is resting comfortably on supplemental oxygen. HEENT: PERRLA, EOMI. Throat shows no erythema or tonsillar hypertrophy. NECK: Supple. There is no cervical adenopathy . HEART: Regular rate and rhythm without murmurs, rubs, gallops. LUNGS: Diminished breath sounds and bibasilar Velcro-like crackles. ABDOMEN: Soft, nontender. Bowel sounds are present. EXTREMITI ES: No clubbing, cyanosis, or edema. LABORATORIES: White count 7.5, hemoglobin 13, hematocrit 37, platelet count 344. Sodium 143, potass ium 3.2, chloride 18, CO2 is 25, BUN 16, creatinine 0.6, glucose is 121. BNP is mildly elevated at 3 59. Chest x-ray, reviewed by myself, shows patchy infiltrates, as well as chronic pulmonary fibrosis . IMPRESSION: 1. Idiopathic pulmonary fibrosis. Patient is on chronic oxygen for this. 2. Acute respiratory failure, with worsening hypoxemia. 3. Diffuse pneumonia, likely viral, as patient has grown out human metapneumovirus. 4. Hypothyroidism. 5. Hypertension. 6. Gastroesophageal reflux disease. RECOMMENDATIONS: 1. Agree with high-flow oxygen. Wean as tolerated. 2. DVT and PE prophylaxis. 3. Stress ulcer prophylaxis. 4. Agree with supplemental IV antibiotics. 5. Agree with high-dose steroids. 6. PT and OT. 7. Out of bed. /[id number]/MODL
[2017-04-26] MEDS: ASPIRIN 81 MG CHEWABLE TAB PO SCH (20:49)
[2017-04-26] MEDS: amLODIPine BESYLATE 5 MG TAB PO SCH (20:50)
[2017-04-26] MEDS ORDERED: levOFLOXACIN 500 MG/DEXTROSE 100 ML IV SCH (22:00)
[2017-04-27] MEDS: BENZONATATE 100 MG CAP PO PRN ×3 (01:59→20:52)
[2017-04-27] MEDS: GUAIFENESIN/DM 10 ML UDCUP PO PRN ×4 (01:59→20:51)
[2017-04-27] MEDS: LEVOTHYROXINE 75 MCG TAB PO SCH (04:29)
[2017-04-27] MEDS: IPRATROPIUM/ALBUTEROL 3 ML DEYVIAL IH SCH ×4 (06:00→20:00)
--- NOTE | 2017-04-27 08:19 | HOSPPROG ---
Hospitalist Progress Note Assessment/Plan: #Acute on chronic hypoxemic resp failure: due to human metapneumovirus, CAP -mild improvement today. Cont Vapotherm, Levaquin, IV steroids, cough suppressant #NSTEMI: demand with hypoxemia. I personally reviewed YRN. She has cath 3/ with normal coronaries, mild HTN, no #Pulmonary fibrosis: 5-6L oxygen baseline. Followed by Dr. Gillis #Hypothyroidism: LT4 #Benign HTN #Hypomagnesium/hypokalemia: repleted #Hematochezia: 1 episode. Monitor H/H. C diff pending with recent abx #Diet: regular #DVT ppx: SCDs #Disp: warrants inpatient admission for acute hypoxia, requires IV abx, steroids Subjective: few coughing spells last night, but overall improved Objective: Vital Signs Temp Pulse Resp BP Pulse Ox 36.8 C 71 29 H 119/71 95 04/27/17 08:00 04/27/17 08:00 04/27/17 08:00 04/27/17 08:00 04/27/17 08:00 Microbiology 04/25/17 23:17 Respiratory Panel (PCR) - Final Nasal, Sinus - Swab Human Metapneumovirus Laboratory Results 04/26/17 06:15 04/27/17 04:20 04/26/17 04/27/17 04/28/17 05:59 05:59 05:59 Intake Total 1450 3753 Output Total 400 200 Balance 1050 3553 PT 14.3 SEC (12.0-15.0) 04/25/17 21:51 INR 1.09 (0.83-1.16) 04/25/17 21:51 ICD10 Worksheet Patient Problems: Problems Problem Status Onset Elevated troponin Acute Hematochezia Acute Hypoxia Acute Pneumonia Acute Pulmonary fibrosis Acute s/p LVATS lung biopsies Acute ~11/30/16 Chronic steroid use Chronic ILD (interstitial lung disease) Chronic
--- NOTE | 2017-04-27 09:23 | PDINTPN ---
Marketing Operations Intern Progress Note Assessment/Plan: Assessment/plan: * Idiopathic pulmonary fibrosis-currently off Ofev * Acute respiratory failure with worsening hypoxemia secondary to IPF and lung infection -continue high-dose steroids -continue high-flow oxygen. Will wean as tolerated * Diffuse pneumonia-likely viral as patient has grown out metapneumovirus * Hypothyroidism * Hypertension-controlled * Gastroesophageal reflux disease-controlled * Nutrition-have started oral today * VTE prophylaxis * Stress ulcer prophylaxis * Out of bed to chair * PT and OT-hold off ambulation for now secondary to hypoxemia Case discussed with respiratory therapy and nursing Subjective: Sitting up in bed resting comfortably. He had good spirits. Objective: Vital Signs Temp Pulse Resp BP Pulse Ox 36.8 C 71 29 H 119/71 95 04/27/17 08:00 04/27/17 08:00 04/27/17 08:00 04/27/17 08:00 04/27/17 08:00 Microbiology 04/25/17 23:17 Respiratory Panel (PCR) - Final Nasal, Sinus - Swab Human Metapneumovirus Laboratory Results 04/26/17 06:15 04/27/17 04:20 04/26/17 04/27/17 04/28/17 05:59 05:59 05:59 Intake Total 1450 3753 Output Total 400 200 Balance 1050 3553 PT 14.3 SEC (12.0-15.0) 04/25/17 21:51 INR 1.09 (0.83-1.16) 04/25/17 21:51 - Time Spent With Patient Time Spent With Patient: 25 min spent with patient, over 1/2 involved with coordination of care or counseling Physical Exam - Physical Exam General Appearance: alert, no apparent distress EENT: PERRL/EOMI, normal ENT inspection Neck: non-tender, full range of motion Respiratory: crackles (Bibasilar Velcro like), rhonchi (Scattered), No respiratory distress, No wheezing Cardiac/Chest: normal peripheral pulses, regular rate, rhythm Peripheral Pulses: 2+: carotid (R), carotid (L), femoral (R), femoral (L), dorsalis-pedis (R), dorsalis-pedis (L) Abdomen: normal bowel sounds, non-tender, soft Pelvic Exam: deferred Rectal: deferred Skin: normal color, warm/dry Lymphatic: no adenopathy Extremities: normal range of motion, non-tender, normal inspection, normal capillary refill ICD10 Worksheet Patient Problems: Problems Problem Status Onset Elevated troponin Acute Hematochezia Acute Hypoxia Acute Pneumonia Acute Pulmonary fibrosis Acute s/p LVATS lung biopsies Acute ~11/30/16 Chronic steroid use Chronic ILD (interstitial lung disease) Chronic
[2017-04-27] MEDS: PANTOPRAZOLE SODIUM 40 MG TAB PO SCH (09:32)
[2017-04-27] MEDS: CHOLECALCIFEROL VIT D3 2,000 UNITS TAB/CAP PO SCH (09:32)
[2017-04-27] MEDS: methylPREDNISolone SOD SUCC 125 MG/2 ML VIAL IVP SCH ×2 (09:32→20:50)
[2017-04-27] MEDS: ENOXAPARIN 40 MG/0.4 ML SYR SC SCH (12:00)
[2017-04-27] MEDS: amLODIPine BESYLATE 5 MG TAB PO SCH (20:51)
[2017-04-27] MEDS: ASPIRIN 81 MG CHEWABLE TAB PO SCH (20:51)
[2017-04-27] MEDS: HYDROCODONE/APAP 5/325 TAB PO PRN (20:52)
[2017-04-28] MEDS: HYDROCODONE/APAP 5/325 TAB PO PRN ×2 (03:27→20:39)
[2017-04-28] MEDS: GUAIFENESIN/DM 10 ML UDCUP PO PRN ×3 (03:28→20:42)
[2017-04-28] MEDS: BENZONATATE 100 MG CAP PO PRN ×3 (03:28→20:39)
[2017-04-28] MEDS: IPRATROPIUM/ALBUTEROL 3 ML DEYVIAL IH SCH ×4 (03:41→20:26)
[2017-04-28] MEDS: LEVOTHYROXINE 75 MCG TAB PO SCH (05:55)
--- NOTE | 2017-04-28 08:51 | PDINTPN ---
Intelligence Officer Progress Note Assessment/Plan: Assessment/plan: * Idiopathic pulmonary fibrosis-currently off Ofev * Acute respiratory failure with worsening hypoxemia secondary to IPF and lung infection. Now on high-flow Vapotherm. Market hypoxemia with any form of exertion -continue high-dose steroids. Will consider increasing dose of steroids if she does not improved in the near future. -continue high-flow oxygen. Will wean as tolerated -will check echocardiogram today * Diffuse pneumonia-likely viral as patient has grown out metapneumovirus -will check chest x-ray in the morning * Hypothyroidism * Hypertension-controlled * Gastroesophageal reflux disease-controlled * Nutrition-have started oral today * VTE prophylaxis * Stress ulcer prophylaxis * Out of bed to chair * PT and OT-hold off ambulation for now secondary to hypoxemia * Disposition-very slow to improve Case discussed with respiratory therapy and nursing Subjective: Breathing comfortably when sitting quietly. She becomes markedly breathless any form exertion. Objective: Vital Signs Temp Pulse Resp BP Pulse Ox 36.8 C 76 25 H 125/71 H 98 04/28/17 03:30 04/28/17 03:43 04/28/17 03:43 04/28/17 03:30 04/28/17 03:43 Laboratory Results 04/26/17 06:15 04/27/17 04:20 04/27/17 04/28/17 04/29/17 05:59 05:59 05:59 Intake Total 3753 0 Output Total 200 Balance 3553 0 PT 14.3 SEC (12.0-15.0) 04/25/17 21:51 INR 1.09 (0.83-1.16) 04/25/17 21:51 - Time Spent With Patient Time Spent With Patient: 35 min of time spent with patient, over 1/2 involved with coordination of care or counseling. Case discussed with Nursing and Respiratory therapy Physical Exam - Physical Exam General Appearance: alert, no apparent distress EENT: PERRL/EOMI, normal ENT inspection Neck: non-tender, full range of motion, supple, normal inspection Respiratory: decreased breath sounds, crackles (Bibasilar Velcro like crackles) , No respiratory distress, No wheezing Cardiac/Chest: normal peripheral pulses, regular rate, rhythm Abdomen: normal bowel sounds, non-tender, soft Pelvic Exam: deferred Rectal: deferred Skin: normal color, warm/dry Extremities: normal range of motion, non-tender, normal inspection, normal capillary refill Neuro/Psych: no motor/sensory deficits, alert, normal mood/affect, oriented x 3 ICD10 Worksheet Patient Problems: Problems Problem Status Onset Elevated troponin Acute Hematochezia Acute Hypoxia Acute Pneumonia Acute Pulmonary fibrosis Acute s/p LVATS lung biopsies Acute ~11/30/16 Chronic steroid use Chronic ILD (interstitial lung disease) Chronic
[2017-04-28] MEDS: methylPREDNISolone SOD SUCC 125 MG/2 ML VIAL IVP SCH ×2 (09:47→20:37)
[2017-04-28] MEDS: PANTOPRAZOLE SODIUM 40 MG TAB PO SCH (09:47)
[2017-04-28] MEDS: ENOXAPARIN 40 MG/0.4 ML SYR SC SCH (09:47)
[2017-04-28] MEDS: CHOLECALCIFEROL VIT D3 2,000 UNITS TAB/CAP PO SCH (09:47)
[2017-04-28] MEDS ORDERED: LACTULOSE 20 GM/30 ML UDCUP PO PRN (11:38)
[2017-04-28] MEDS ORDERED: BISACODYL 10 MG SUPP PR PRN (11:38)
[2017-04-28] MEDS ORDERED: POLYETHYLENE GLYCOL 3350 17 GM PKT PO PRN (11:38)
[2017-04-28] MEDS ORDERED: MAGNESIUM HYDROXIDE 30 ML UDCUP PO PRN (11:38)
--- NOTE | 2017-04-28 11:39 | ASMTCMCOM ---
CM Note CM Note Notes: Patient has marked hypoxemia with any form of exertion. PT/OT on hold secondary to hypoxemia. D/C plan TBD. CM will follow. Date Signed: 04/28/2017 11:38 AM Electronically Signed By:Emma Dowd LCSW
--- NOTE | 2017-04-28 13:03 | HOSPPROG ---
Hospitalist Progress Note Assessment/Plan: #Acute on chronic hypoxemic resp failure: due to human metapneumovirus, CAP -Vapotherm, Levaquin, IV steroids, cough suppressant #NSTEMI: demand with hypoxemia. She has cath 3/2 with normal coronaries, mild HTN, no -cont aspirin #Pulmonary fibrosis: 5-6L oxygen baseline. Followed by Dr. Gillis #Hypothyroidism: LT4 #Benign HTN, controlled on amlodipine #Hypomagnesium: on protocol #Hematochezia: 1 episode. Monitor H/H. C diff pending with recent abx #Diet: regular #DVT ppx: SCDs #Disp: warrants inpatient admission for acute hypoxia, requires IV abx, steroids Plan: -Cont Levaquin for a total of 5 days. Checking pc to help assist with this decision. No leukocytosis. Afebrile. -Cont Solumedrol, may need to be increased tomorrow per pulm Subjective: feels about the same. no fever. Objective: Vital Signs Temp Pulse Resp BP Pulse Ox 36.6 C 69 28 H 120/72 98 04/28/17 12:00 04/28/17 12:00 04/28/17 12:00 04/28/17 12:00 04/28/17 12:00 Laboratory Results 04/26/17 06:15 04/27/17 04:20 04/27/17 04/28/17 04/29/17 05:59 05:59 05:59 Intake Total 3753 2050 Output Total 200 300 Balance 3553 2050 -300 PT 14.3 SEC (12.0-15.0) 04/25/17 21:51 INR 1.09 (0.83-1.16) 04/25/17 21:51 - Physical Exam Constitutional: no apparent distress Eyes: PERRL Ears, Nose, Mouth, Throat: moist mucous membranes, hearing normal, ears appear normal Cardiovascular: regular rate and rhythym, No edema Respiratory: reduced air movement, expiratory wheeze Gastrointestinal: normoactive bowel sounds, soft, non-tender abdomen Neurologic: AAOx3 Psychiatric: interacting appropriately, not anxious, not encephalopathic Lymph, Heme, Immunologic: No petechiae ICD10 Worksheet Patient Problems: Problems Problem Status Onset Elevated troponin Acute Hematochezia Acute Hypoxia Acute Pneumonia Acute Pulmonary fibrosis Acute s/p LVATS lung biopsies Acute ~11/30/16 Chronic steroid use Chronic ILD (interstitial lung disease) Chronic
--- NOTE | 2017-04-28 13:31 | ECHO ---
[email or web address] [address] [address] Main: [phone] Fax: Transthoracic Echocardiogram Name: LD PHELPS MR#: [id number] Study Date: 04/28/2017 Study Time: 11:31 AM Date of : 1945 Age: 71 year(s) Height: 165.1 cm (65 in.) Weight: 62.14 kg (137 lb.) BSA: 1.68 m2 Gender: Female Examination: Echo Indication: Pneumonia, Hypoxia Image Quality: Contrast: Requested by: Efrain Magallanes BP: / Heart Rate: Rhythm: Normal sinus rhythm Indication: Pneumonia, Hypoxia Procedure Staff Braille Proofreader: Sudhir Lewis RDCS Reading Physician: Zeke Gutierrez MD Requesting Provider: Conclusions: Normal left ventricular size and systolic function. LVEF estimated at 65-70% with normal wall motion. Grade 1 diastolic dysfunction. The right ventricle appears to be mild to moderately dilated with mildly reduced systolic function. The interventricular septum is "D" shaped consistent with right ventricular pressure overload. Mild left atrial enlargement. Normal-appearing valvular morphology. Mild mitral regurgitation. [id number] tricuspid regurgitation. Severely elevated estimated RVSP at 84 mmHg. Measurements: Chambers Valvular Assessment AV/MV Valvular Assessment TV/PV Normal Normal Normal Name Value Range Name Value Range Name Value Range IVSd (2D): 0.6 cm (0.6 cm-1.1 AV Vmax: 1.40 m/s (1 m/s-1.7 TR Vmax: 4.30 mm/s ( - ) cm) m/s) TR PGmax: 74 mmHg ( - ) LVDd (2D): 5.1 cm (3.9 cm-5.3 AV maxP mmHg ( - ) syst. PAP: 84 mmHg ( - ) cm) LVOT Vmax: 0.69 m/s (0.7 m/s-1.1 PV Vmax: 0.74 m/s (0.6 m/s-0.9 LVDs (2D): 2.7 cm (2.1 cm-4 m/s) m/s) cm) MV E Vmax: 0.49 m/s ( - ) PV PGmax: 2 mmHg ( - ) LVPWd (2D): 0.6 cm ( - ) MV A Vmax: 0.76 m/s ( - ) LVEF (BP): 68 % (>=55 %) MV E/A: 0.64 ( - ) EF Range: 65-70 % RVDd(2D): 3.8 cm (1.9 cm-3.8 cmmm) Continued Measurements: Valvular Assessment AV/MV Valvular Assessment TV/PV Name Value Name Value MV E' Septal: 0.04 m/s CVP (est.): 10 mmHg MV E/E' Septal: 10.90 MV E/E' Lateral: 9.10 Patient: LD PHELPS Study Date: 04/28/2017 Page 1 of 2 11:31 AM MR Vena Contracta: 0.4 cm Findings: Left Ventricle: Normal size left ventricle. No LV hypertrophy. Normal global systolic LV function. The ejection fraction is estimated to be 65-70 %. No regional wall motion abnormality. Diastolic LV function normal for age. Right Ventricle: Mildly dilated right ventricle. There is abnormal septal motion with diastolic flattening suggestive of RV volume/pressure overload. . Left Atrium: The left atrium is mildly dilated. Right Atrium: The right atrium is normal in size. Mitral Valve: The mitral valve is normal in appearance and function. Mild mitral valve regurgitation is present. No mitral stenosis is present. Aortic Valve: The aortic valve is tri-leaflet and functions normally. No aortic valve stenosis is present. Tricuspid Valve: Mild to moderate tricuspid valve regurgitation. The pulmonary artery pressure is severely increased. Pulmonic Valve: The pulmonic valve is normal in appearance. Aorta: The aorta is normal. Pericardium: No pericardial effusion. Exam Comments: There are poor apical 4C and 2C views due to lung interference.. (No Signature Object) Patient: LD PHELPS Study Date: 04/28/2017 Page 2 of 2 11:31 AM [id number]
[2017-04-28] MEDS: SENNOSIDES/DOCUSATE SODIUM TAB PO SCH (20:38)
[2017-04-28] MEDS: amLODIPine BESYLATE 5 MG TAB PO SCH (20:39)
[2017-04-28] MEDS: ASPIRIN 81 MG CHEWABLE TAB PO SCH (20:39)
[2017-04-29] MEDS: GUAIFENESIN/DM 10 ML UDCUP PO PRN ×4 (01:24→21:49)
[2017-04-29] MEDS: HYDROCODONE/APAP 5/325 TAB PO PRN ×4 (01:24→21:48)
[2017-04-29] MEDS: IPRATROPIUM/ALBUTEROL 3 ML DEYVIAL IH SCH (04:56)
[2017-04-29] MEDS: BENZONATATE 100 MG CAP PO PRN ×2 (06:06→14:12)
[2017-04-29] MEDS: LEVOTHYROXINE 75 MCG TAB PO SCH (06:06)
[2017-04-29] MEDS: ENOXAPARIN 40 MG/0.4 ML SYR SC SCH (09:32)
[2017-04-29] MEDS: SENNOSIDES/DOCUSATE SODIUM TAB PO SCH ×2 (09:32→21:48)
[2017-04-29] MEDS: PANTOPRAZOLE SODIUM 40 MG TAB PO SCH (09:32)
[2017-04-29] MEDS: CHOLECALCIFEROL VIT D3 2,000 UNITS TAB/CAP PO SCH (09:32)
[2017-04-29] MEDS: methylPREDNISolone SOD SUCC 125 MG/2 ML VIAL IVP SCH ×3 (09:33→18:43)
--- NOTE | 2017-04-29 10:31 | PDINTPN ---
Vacuum Closing Machine Operator Progress Note Assessment/Plan: Assessment/plan: * Idiopathic pulmonary fibrosis-currently off Ofev * Acute respiratory failure with worsening hypoxemia secondary to IPF and lung infection. Now on high-flow Vapotherm. Market hypoxemia with any form of exertion -changed to high-dose steroids. -continue high-flow oxygen. Will wean as tolerated * Severe pulmonary hypertension-right ventricular systolic pressure of 84 mm Hg * Diffuse pneumonia-likely viral as patient has grown out metapneumovirus -no change in chest x-ray -consider CT scan of chest * Hypothyroidism * Hypertension-controlled * Gastroesophageal reflux disease-controlled * Nutrition-have started oral today * VTE prophylaxis * Stress ulcer prophylaxis * Out of bed to chair * PT and OT-hold off ambulation for now secondary to hypoxemia * Disposition-very slow to improve Case discussed with respiratory therapy and nursing Subjective: Sitting up in bed. Breathing easily on high-flow oxygen. Market desaturations and breathlessness with any form of activity Objective: Vital Signs Temp Pulse Resp BP Pulse Ox 36.8 C 71 24 H 126/71 H 94 04/29/17 07:30 04/29/17 07:30 04/29/17 07:30 04/29/17 07:30 04/29/17 07:30 Laboratory Results 04/26/17 06:15 04/27/17 04:20 04/28/17 04/29/17 04/30/17 05:59 05:59 05:59 Intake Total 0 800 Output Total 300 70 Balance 0 500 -70 PT 14.3 SEC (12.0-15.0) 04/25/17 21:51 INR 1.09 (0.83-1.16) 04/25/17 21:51 - Time Spent With Patient Time Spent With Patient: 35 min of time spent with patient, over 1/2 involved with coordination of care counseling. Case discussed with respiratory therapy and nursing Physical Exam - Physical Exam General Appearance: WD/WN, alert EENT: PERRL/EOMI, normal ENT inspection Neck: non-tender, full range of motion, supple, normal inspection Respiratory: crackles (Diffuse bibasilar), No respiratory distress, No wheezing Cardiac/Chest: normal peripheral pulses, regular rate, rhythm, systolic murmur Abdomen: normal bowel sounds, non-tender, soft Pelvic Exam: deferred Rectal: deferred Skin: normal color, warm/dry Neuro/Psych: no motor/sensory deficits, alert, normal mood/affect, oriented x 3 ICD10 Worksheet Patient Problems: Problems Problem Status Onset Elevated troponin Acute Hematochezia Acute Hypoxia Acute Pneumonia Acute Pulmonary fibrosis Acute s/p LVATS lung biopsies Acute ~11/30/16 Chronic steroid use Chronic ILD (interstitial lung disease) Chronic
--- NOTE | 2017-04-29 10:46 | HOSPPROG ---
Hospitalist Progress Note Assessment/Plan: #Acute on chronic hypoxemic resp failure: due to human metapneumovirus, CAP -Vapotherm, Levaquin, IV steroids, cough suppressant #Pulm HTN -RVSP 84mmHg #NSTEMI: demand with hypoxemia. She has cath 3/2 with normal coronaries, mild HTN, no -cont aspirin #Pulmonary fibrosis: 5-6L oxygen baseline. Followed by Dr. Gillis #Hypothyroidism: LT4 #Benign HTN, controlled on amlodipine #Hypomagnesium: on protocol #Hematochezia: 1 episode. Monitor H/H. C diff pending with recent abx #Diet: regular #DVT ppx: SCDs #Disp: warrants inpatient admission for acute hypoxia, requires IV abx, steroids Plan: -CXR personally reviewed, unchanged -consider CT -Increase Solumedrol per pulm -Cont Levaquin for a total of 5 days. No leukocytosis. Afebrile. normal PC -cont ICU status Subjective: still with SOB, somewhat better Objective: Vital Signs Temp Pulse Resp BP Pulse Ox 36.8 C 71 24 H 126/71 H 94 04/29/17 07:30 04/29/17 07:30 04/29/17 07:30 04/29/17 07:30 04/29/17 07:30 Laboratory Results 04/26/17 06:15 04/27/17 04:20 04/28/17 04/29/17 04/30/17 05:59 05:59 05:59 Intake Total 0 800 Output Total 300 70 Balance 2049 500 -70 PT 14.3 SEC (12.0-15.0) 04/25/17 21:51 INR 1.09 (0.83-1.16) 04/25/17 21:51 - Physical Exam Constitutional: no apparent distress Eyes: PERRL Ears, Nose, Mouth, Throat: moist mucous membranes Cardiovascular: regular rate and rhythym Respiratory: no respiratory distress, reduced air movement, expiratory wheeze Gastrointestinal: normoactive bowel sounds, soft, non-tender abdomen Skin: warm Musculoskeletal: full muscle strength Neurologic: AAOx3 Psychiatric: interacting appropriately, not anxious, not encephalopathic Lymph, Heme, Immunologic: No petechiae ICD10 Worksheet Patient Problems: Problems Problem Status Onset Elevated troponin Acute Hematochezia Acute Hypoxia Acute Pneumonia Acute Pulmonary fibrosis Acute s/p LVATS lung biopsies Acute ~11/30/16 Chronic steroid use Chronic ILD (interstitial lung disease) Chronic
[2017-04-29] MEDS: amLODIPine BESYLATE 5 MG TAB PO SCH (21:48)
[2017-04-29] MEDS: ASPIRIN 81 MG CHEWABLE TAB PO SCH (21:48)
[2017-04-30] MEDS: methylPREDNISolone SOD SUCC 125 MG/2 ML VIAL IVP SCH ×4 (00:36→18:29)
[2017-04-30] MEDS: HYDROCODONE/APAP 5/325 TAB PO PRN ×2 (02:16→20:45)
[2017-04-30] MEDS: BENZONATATE 100 MG CAP PO PRN (02:18)
[2017-04-30 04:45] LABS: PLATELET COUNT 470 10^3/uL (150-400)
[2017-04-30] MEDS: LEVOTHYROXINE 75 MCG TAB PO SCH (07:07)
[2017-04-30] MEDS: CHOLECALCIFEROL VIT D3 2,000 UNITS TAB/CAP PO SCH (08:43)
[2017-04-30] MEDS: ENOXAPARIN 40 MG/0.4 ML SYR SC SCH (08:43)
[2017-04-30] MEDS: SENNOSIDES/DOCUSATE SODIUM TAB PO SCH ×2 (08:43→20:45)
[2017-04-30] MEDS: PANTOPRAZOLE SODIUM 40 MG TAB PO SCH (08:43)
[2017-04-30] MEDS ORDERED: methylPREDNISolone SOD SUCC 125 MG/2 ML VIAL IVP SCH (09:32)
--- NOTE | 2017-04-30 09:32 | PDINTPN ---
Funeral Planner Progress Note Assessment/Plan: Assessment/plan: * Idiopathic pulmonary fibrosis-currently off Ofev * Acute respiratory failure with worsening hypoxemia secondary to IPF and lung infection. Now on high-flow Vapotherm. Market hypoxemia with any form of exertion. CT scan of the chest shows diffuse fibrosis with ground-glass attenuation throughout -will place on Solu-Medrol 250 mg IV q.6 hours -continue high-flow oxygen. Will wean as tolerated * Severe pulmonary hypertension-right ventricular systolic pressure of 84 mm Hg. -consider Revatio * Diffuse pneumonia-likely viral as patient has grown out metapneumovirus -continue respiratory isolation * Hypothyroidism * Hypertension-controlled * Gastroesophageal reflux disease-controlled * Nutrition-have started oral today * VTE prophylaxis * Stress ulcer prophylaxis * Out of bed to chair * PT and OT-hold off ambulation for now secondary to hypoxemia * Disposition-very slow to improve Case discussed with respiratory therapy and nursing Subjective: Sitting up in chair. Resting comfortably on high-flow oxygen. Objective: Vital Signs Temp Pulse Resp BP Pulse Ox 36.7 C 101 H 20 136/70 H 95 04/30/17 08:00 04/30/17 08:00 04/30/17 08:00 04/30/17 08:00 04/30/17 08:00 Laboratory Results 04/30/17 04:20 04/30/17 04:20 04/29/17 04/30/17 05/01/17 05:59 05:59 05:59 Intake Total 800 600 Output Total 300 320 Balance 500 280 PT 14.3 SEC (12.0-15.0) 04/25/17 21:51 INR 1.09 (0.83-1.16) 04/25/17 21:51 - Time Spent With Patient Time Spent With Patient: 35 min of time spent with patient, over 1/2 involved with coordination of care or counseling Physical Exam - Physical Exam General Appearance: alert EENT: PERRL/EOMI, normal ENT inspection Neck: non-tender, full range of motion, supple, normal inspection Respiratory: crackles (Bibasilar), No respiratory distress, No accessory muscle use Cardiac/Chest: normal peripheral pulses, regular rate, rhythm Abdomen: normal bowel sounds, non-tender, soft Pelvic Exam: deferred Rectal: deferred Skin: normal color, warm/dry Extremities: normal range of motion, non-tender, normal inspection, normal capillary refill Neuro/Psych: no motor/sensory deficits, alert, normal mood/affect, oriented x 3 ICD10 Worksheet Patient Problems: Problems Problem Status Onset Elevated troponin Acute Hematochezia Acute Hypoxia Acute Pneumonia Acute Pulmonary fibrosis Acute s/p LVATS lung biopsies Acute ~11/30/16 Chronic steroid use Chronic ILD (interstitial lung disease) Chronic
--- NOTE | 2017-04-30 09:59 | ASMTCMCOM ---
CM Note CM Note Notes: Patient has acute respiratory failure with worsening hypoxemia secondary to IPF and lung infection. She has been slow to improve. PT/OT still on hold until hypoxemia has improved. D/C plan TBD. CM will follow. Date Signed: 04/30/2017 09:58 AM Electronically Signed By:Emma Dowd LCSW
--- NOTE | 2017-04-30 11:25 | HOSPPROG ---
Hospitalist Progress Note Assessment/Plan: #Acute on chronic hypoxemic resp failure: due to human metapneumovirus, CAP -Vapotherm, off Levaquin, IV steroids increased today, cough suppressant #Pulm HTN -RVSP 84mmHg #NSTEMI: demand with hypoxemia. She has cath 3/ with normal coronaries, mild HTN, no -cont aspirin #Pulmonary fibrosis: 5-6L oxygen baseline. Followed by Dr. Gillis #Hypothyroidism: LT4 #Benign HTN, controlled on amlodipine #Hypomagnesium: on protocol #Hematochezia: 1 episode. H/H stable #Diet: regular #DVT ppx: SCDs #Disp: warrants inpatient admission for acute hypoxia Plan: -CT reviewed -Increase steroids per pulm -cont with all other -cont ICU status Subjective: essentially the same as yesterday. Cough with deep inspiration Objective: Vital Signs Temp Pulse Resp BP Pulse Ox 36.7 C 101 H 20 136/70 H 95 04/30/17 08:00 04/30/17 08:00 04/30/17 08:00 04/30/17 08:00 04/30/17 08:00 Laboratory Results 04/30/17 04:20 04/30/17 04:20 04/29/17 04/30/17 05/01/17 05:59 05:59 05:59 Intake Total 800 600 Output Total 300 320 Balance 500 280 PT 14.3 SEC (12.0-15.0) 04/25/17 21:51 INR 1.09 (0.83-1.16) 04/25/17 21:51 - Physical Exam Constitutional: no apparent distress Eyes: PERRL Ears, Nose, Mouth, Throat: moist mucous membranes, hearing normal Cardiovascular: regular rate and rhythym, No edema Respiratory: no respiratory distress, reduced air movement Gastrointestinal: normoactive bowel sounds Skin: warm Neurologic: AAOx3 Psychiatric: interacting appropriately, not anxious, not encephalopathic, thought process linear Lymph, Heme, Immunologic: No petechiae ICD10 Worksheet Patient Problems: Problems Problem Status Onset Elevated troponin Acute Hematochezia Acute Hypoxia Acute Pneumonia Acute Pulmonary fibrosis Acute s/p LVATS lung biopsies Acute ~11/30/16 Chronic steroid use Chronic ILD (interstitial lung disease) Chronic
[2017-04-30] MEDS: ALPRAZolam 0.25 MG TAB PO PRN ×2 (13:22→18:29)
[2017-04-30] MEDS ORDERED: ALPRAZolam 0.25 MG TAB PO SCH (16:00)
[2017-04-30] MEDS: amLODIPine BESYLATE 5 MG TAB PO SCH (20:44)
[2017-04-30] MEDS: ASPIRIN 81 MG CHEWABLE TAB PO SCH (20:45)
[2017-04-30] MEDS: GUAIFENESIN/DM 10 ML UDCUP PO PRN (20:45)
[2017-05-01] MEDS: methylPREDNISolone SOD SUCC 125 MG/2 ML VIAL IVP SCH ×4 (00:21→19:45)
[2017-05-01] MEDS: BENZONATATE 100 MG CAP PO PRN (04:39)
[2017-05-01] MEDS: LEVOTHYROXINE 75 MCG TAB PO SCH (05:43)
[2017-05-01] MEDS: ALPRAZolam 0.25 MG TAB PO PRN (05:43)
--- NOTE | 2017-05-01 07:32 | PDINTPN ---
Occupational Nurse Progress Note Assessment/Plan: Assessment/plan: * Idiopathic pulmonary fibrosis-currently off Ofev * Acute respiratory failure with worsening hypoxemia secondary to IPF and lung infection. Now on high-flow Vapotherm. Market hypoxemia with any form of exertion. CT scan of the chest shows diffuse fibrosis with ground-glass attenuation throughout. Improved today. Less hypoxemic with movement. -will place on Solu-Medrol 250 mg IV q.6 hours -continue high-flow oxygen. Will wean as tolerated * Severe pulmonary hypertension-right ventricular systolic pressure of 84 mm Hg. -consider Revatio * Diffuse pneumonia-likely viral as patient has grown out metapneumovirus -continue respiratory isolation * Hypothyroidism * Hypertension-controlled * Gastroesophageal reflux disease-controlled * Nutrition-adequate * VTE prophylaxis * Stress ulcer prophylaxis * Out of bed to chair * PT and OT-consult today * Disposition-very slow to improve Case discussed with respiratory therapy and nursing Subjective: Resting comfortably on high-flow oxygen Objective: Vital Signs Temp Pulse Resp BP Pulse Ox 36.6 C 96 21 H 130/85 H 81 L 05/01/17 04:00 05/01/17 04:00 05/01/17 04:00 05/01/17 04:00 05/01/17 04:00 Microbiology 04/25/17 23:10 Blood Culture - Final Blood 04/25/17 23:10 Blood Culture - Final Blood Laboratory Results 04/30/17 04:20 04/30/17 04:20 04/30/17 05/01/17 05/02/17 05:59 05:59 05:59 Intake Total 600 1050 Output Total 320 Balance 280 1050 PT 14.3 SEC (12.0-15.0) 04/25/17 21:51 INR 1.09 (0.83-1.16) 04/25/17 21:51 - Time Spent With Patient Time Spent With Patient: 25 min of time spent with patient, over 1/2 involved with coordination of care or counseling. Case discussed with respiratory therapy and nursing Physical Exam - Physical Exam General Appearance: alert EENT: PERRL/EOMI, normal ENT inspection Neck: non-tender, full range of motion, supple, normal inspection Respiratory: crackles (Bibasilar), No accessory muscle use, No wheezing Cardiac/Chest: normal peripheral pulses, regular rate, rhythm, systolic murmur Peripheral Pulses: 2+: carotid (R), carotid (L), femoral (R), femoral (L), dorsalis-pedis (R), dorsalis-pedis (L) Abdomen: normal bowel sounds, non-tender, soft Pelvic Exam: deferred Rectal: deferred Skin: normal color, warm/dry Extremities: normal range of motion, non-tender, normal inspection, normal capillary refill Neuro/Psych: no motor/sensory deficits, alert, normal mood/affect, oriented x 3 ICD10 Worksheet Patient Problems: Problems Problem Status Onset Elevated troponin Acute Hematochezia Acute Hypoxia Acute Pneumonia Acute Pulmonary fibrosis Acute s/p LVATS lung biopsies Acute ~11/30/16 Chronic steroid use Chronic ILD (interstitial lung disease) Chronic
[2017-05-01] MEDS ORDERED: FUROSEMIDE 20 MG/2 ML VIAL ONE (08:13)
[2017-05-01] MEDS: SENNOSIDES/DOCUSATE SODIUM TAB PO SCH ×2 (10:44→22:16)
[2017-05-01] MEDS: CHOLECALCIFEROL VIT D3 2,000 UNITS TAB/CAP PO SCH (10:44)
[2017-05-01] MEDS: PANTOPRAZOLE SODIUM 40 MG TAB PO SCH (10:44)
[2017-05-01] MEDS: ENOXAPARIN 40 MG/0.4 ML SYR SC SCH (10:45)
--- NOTE | 2017-05-01 11:15 | HOSPPROG ---
Hospitalist Progress Note Assessment/Plan: #Acute on chronic hypoxemic resp failure: due to human metapneumovirus, CAP, pulmonary fibrosis -IV sterodis, cont current dose -Vapotherm, off Levaquin, cough suppressant #Pulm HTN -RVSP 84mmHg #NSTEMI: demand with hypoxemia. She has cath 3/ with normal coronaries, mild HTN, no -cont aspirin #Pulmonary fibrosis: 5-6L oxygen baseline. Followed by Dr. Gillis #Hypothyroidism: LT4 #Benign HTN, controlled on amlodipine #Hypomagnesium: on protocol #Hematochezia: 1 episode. H/H stable, resolved #Diet: regular #DVT ppx: SCDs #Disp: warrants inpatient admission for acute hypoxia Plan: -cont ICU care -Cont current steroid dose -improving slowly Subjective: feels better. Breathing is easier. No CP. No edema Objective: Vital Signs Temp Pulse Resp BP Pulse Ox 36.7 C 87 22 H 113/59 L 88 L 05/01/17 08:00 05/01/17 08:00 05/01/17 08:00 05/01/17 08:00 05/01/17 08:00 Microbiology 04/25/17 23:10 Blood Culture - Final Blood 04/25/17 23:10 Blood Culture - Final Blood Laboratory Results 04/30/17 04:20 04/30/17 04:20 04/30/17 05/01/17 05/02/17 05:59 05:59 05:59 Intake Total 600 1050 Output Total 320 Balance 280 1050 PT 14.3 SEC (12.0-15.0) 04/25/17 21:51 INR 1.09 (0.83-1.16) 04/25/17 21:51 - Physical Exam Constitutional: no apparent distress Eyes: PERRL Ears, Nose, Mouth, Throat: moist mucous membranes, hearing normal Cardiovascular: regular rate and rhythym, No edema Respiratory: reduced air movement, expiratory wheeze Gastrointestinal: normoactive bowel sounds, soft, non-tender abdomen Skin: warm Musculoskeletal: generalized weakness Neurologic: AAOx3 Psychiatric: interacting appropriately, not anxious, not encephalopathic, thought process linear Lymph, Heme, Immunologic: No petechiae ICD10 Worksheet Patient Problems: Problems Problem Status Onset Elevated troponin Acute Hematochezia Acute Hypoxia Acute Pneumonia Acute Pulmonary fibrosis Acute s/p LVATS lung biopsies Acute ~11/30/16 Chronic steroid use Chronic ILD (interstitial lung disease) Chronic
[2017-05-01] MEDS: GUAIFENESIN/DM 10 ML UDCUP PO PRN ×2 (12:37→22:17)
[2017-05-01] MEDS: HYDROCODONE/APAP 5/325 TAB PO PRN ×2 (16:16→22:16)
[2017-05-01] MEDS: ASPIRIN 81 MG CHEWABLE TAB PO SCH (22:16)
[2017-05-01] MEDS: amLODIPine BESYLATE 5 MG TAB PO SCH (22:16)
[2017-05-02] MEDS: methylPREDNISolone SOD SUCC 125 MG/2 ML VIAL IVP SCH ×4 (00:32→17:46)
[2017-05-02] MEDS: ALPRAZolam 0.25 MG TAB PO PRN ×4 (00:37→17:46)
[2017-05-02] MEDS: LEVOTHYROXINE 75 MCG TAB PO SCH (06:36)
[2017-05-02] MEDS: BENZONATATE 100 MG CAP PO PRN ×3 (06:36→20:37)
[2017-05-02] MEDS: PANTOPRAZOLE SODIUM 40 MG TAB PO SCH (08:06)
[2017-05-02] MEDS: CHOLECALCIFEROL VIT D3 2,000 UNITS TAB/CAP PO SCH (08:06)
[2017-05-02] MEDS: SENNOSIDES/DOCUSATE SODIUM TAB PO SCH ×2 (08:06→20:33)
[2017-05-02] MEDS: ENOXAPARIN 40 MG/0.4 ML SYR SC SCH (08:07)
[2017-05-02] MEDS: GUAIFENESIN/DM 10 ML UDCUP PO PRN ×2 (08:07→15:38)
--- NOTE | 2017-05-02 09:43 | PDINTPN ---
Streetsweeper Operator Progress Note Assessment/Plan: Assessment/plan: * Idiopathic pulmonary fibrosis-currently off Ofev * Acute respiratory failure with worsening hypoxemia secondary to IPF and lung infection. Now on high-flow Vapotherm. Market hypoxemia with any form of exertion. CT scan of the chest shows diffuse fibrosis with ground-glass attenuation throughout. Stable but not improving. Less hypoxemic with movement. -will place on Solu-Medrol 250 mg IV q.6 hours -continue high-flow oxygen. Will wean as tolerated * Severe pulmonary hypertension-right ventricular systolic pressure of 84 mm Hg. -consider Revatio * Diffuse viral pneumonia- metapneumovirus -continue respiratory isolation * Hypothyroidism * Hypertension-controlled * Gastroesophageal reflux disease-controlled * Nutrition-adequate * VTE prophylaxis * Stress ulcer prophylaxis * Out of bed to chair * PT and OT-consult today * Disposition-very slow to improve Case discussed with respiratory therapy and nursing Subjective: Sitting up in chair. Worked slightly with physical therapy today. Hypoxemia unchanged. Objective: Vital Signs Temp Pulse Resp BP Pulse Ox 36.5 C 88 23 H 121/63 H 84 L 05/02/17 08:00 05/02/17 08:00 05/02/17 08:00 05/02/17 08:00 05/02/17 08:00 Microbiology 04/25/17 23:10 Blood Culture - Final Blood 04/25/17 23:10 Blood Culture - Final Blood Laboratory Results 04/30/17 04:20 04/30/17 04:20 05/01/17 05/02/17 05/03/17 05:59 05:59 05:59 Intake Total 1050 700 240 Output Total 900 Balance 1050 -200 240 PT 14.3 SEC (12.0-15.0) 04/25/17 21:51 INR 1.09 (0.83-1.16) 04/25/17 21:51 - Time Spent With Patient Time Spent With Patient: 35 min of time spent with patient, over 1/2 involved coordination of care or counseling. Case discussed with respiratory therapy and nursing Physical Exam - Physical Exam General Appearance: alert, no apparent distress EENT: PERRL/EOMI, normal ENT inspection Neck: non-tender, full range of motion, supple, normal inspection Respiratory: respiratory distress (Mild ), crackles (Bibasilar Velcro like), No accessory muscle use, No wheezing Cardiac/Chest: normal peripheral pulses, regular rate, rhythm Abdomen: normal bowel sounds, non-tender, soft Pelvic Exam: deferred Rectal: deferred Skin: normal color, warm/dry Extremities: normal range of motion, non-tender, normal inspection, normal capillary refill ICD10 Worksheet Patient Problems: Problems Problem Status Onset Elevated troponin Acute Hematochezia Acute Hypoxia Acute Pneumonia Acute Pulmonary fibrosis Acute s/p LVATS lung biopsies Acute ~11/30/16 Chronic steroid use Chronic ILD (interstitial lung disease) Chronic
[2017-05-02] MEDS ORDERED: LIDOCAINE 1% 300 MG/30 ML SDV ONE (16:24)
--- NOTE | 2017-05-02 16:37 | HOSPPROG ---
Hospitalist Progress Note Assessment/Plan: #Acute on chronic hypoxemic resp failure: due to human metapneumovirus, CAP, pulmonary fibrosis -IV sterodis, cont current dose -Vapotherm, cough suppressant -off Levaquin #Pulm HTN -RVSP 84mmHg #NSTEMI: demand with hypoxemia. She has cath 3/2 with normal coronaries, mild HTN, no -cont aspirin #Pulmonary fibrosis: 5-6L oxygen baseline. Followed by Dr. Gillis #Hypothyroidism: LT4 #Benign HTN, controlled on amlodipine #Hypomagnesium: on protocol #Hematochezia: 1 episode. H/H stable, resolved #Diet: regular #DVT ppx: SCDs #Disp: warrants inpatient admission for acute hypoxia Plan: -cont ICU care -Cont current steroid dose -improving slowly -check labs tomorrow. -monitor glucose closely given large steroids dose -cont ICU care Subjective: feels about the same. Starting to move air better. + cough. Afebrile. Objective: Vital Signs Temp Pulse Resp BP Pulse Ox 36.8 C 87 15 124/66 H 88 L 05/02/17 12:00 05/02/17 12:00 05/02/17 12:00 05/02/17 12:00 05/02/17 12:00 Laboratory Results 04/30/17 04:20 04/30/17 04:20 05/01/17 05/02/17 05/03/17 05:59 05:59 05:59 Intake Total 1050 700 490 Output Total 900 Balance 1050 -200 490 PT 14.3 SEC (12.0-15.0) 04/25/17 21:51 INR 1.09 (0.83-1.16) 04/25/17 21:51 - Physical Exam Constitutional: no apparent distress, not in pain Eyes: PERRL, EOMI Ears, Nose, Mouth, Throat: moist mucous membranes Cardiovascular: regular rate and rhythym, No edema Respiratory: no respiratory distress, reduced air movement Gastrointestinal: normoactive bowel sounds, soft, non-tender abdomen Skin: warm Musculoskeletal: generalized weakness Neurologic: AAOx3 Psychiatric: interacting appropriately, not anxious, not encephalopathic, thought process linear Lymph, Heme, Immunologic: No petechiae ICD10 Worksheet Patient Problems: Problems Problem Status Onset Elevated troponin Acute Hematochezia Acute Hypoxia Acute Pneumonia Acute Pulmonary fibrosis Acute s/p LVATS lung biopsies Acute ~11/30/16 Chronic steroid use Chronic ILD (interstitial lung disease) Chronic
[2017-05-02] MEDS: ASPIRIN 81 MG CHEWABLE TAB PO SCH (20:33)
[2017-05-02] MEDS: amLODIPine BESYLATE 5 MG TAB PO SCH (20:33)
[2017-05-02] MEDS: HYDROCODONE/APAP 5/325 TAB PO PRN (20:36)
[2017-05-03] MEDS: methylPREDNISolone SOD SUCC 125 MG/2 ML VIAL IVP SCH ×4 (00:22→18:19)
[2017-05-03] MEDS: ALPRAZolam 0.25 MG TAB PO PRN ×4 (00:22→18:19)
[2017-05-03] MEDS: GUAIFENESIN/DM 10 ML UDCUP PO PRN ×4 (02:47→20:53)
[2017-05-03] MEDS: BENZONATATE 100 MG CAP PO PRN ×2 (04:15→18:19)
[2017-05-03] MEDS: HYDROCODONE/APAP 5/325 TAB PO PRN ×2 (04:15→20:52)
[2017-05-03 04:32] LABS: PLATELET COUNT 304 10^3/uL (150-400)
[2017-05-03] MEDS: LEVOTHYROXINE 75 MCG TAB PO SCH (06:04)
[2017-05-03] MEDS: ENOXAPARIN 40 MG/0.4 ML SYR SC SCH (08:43)
[2017-05-03] MEDS: PANTOPRAZOLE SODIUM 40 MG TAB PO SCH (08:43)
[2017-05-03] MEDS: SENNOSIDES/DOCUSATE SODIUM TAB PO SCH ×2 (08:43→20:51)
[2017-05-03] MEDS: CHOLECALCIFEROL VIT D3 2,000 UNITS TAB/CAP PO SCH (08:43)
--- NOTE | 2017-05-03 12:36 | HOSPPROG ---
Hospitalist Progress Note Assessment/Plan: # acute on chronic hypoxic resp failure - underlying pulmonary fibrosis, acute human metapneumovirus - cont high dose steroids, high-flow O2 # p-htn - RVSP 84 mmHg # NSTEMI, type 2 - recent reported negative cath; on asa # leukocytosis - explained by steroids # hypothyroid - synthroid # htn - norvasc # hematochezia - one episode, resolved # ppx - protonix, lovenox Subjective: breathing feels slightly easier today; sat in chair Objective: Vital Signs Temp Pulse Resp BP Pulse Ox 36.7 C 69 24 H 130/73 H 90 L 05/03/17 11:49 05/03/17 11:49 05/03/17 11:49 05/03/17 11:49 05/03/17 11:49 Laboratory Results 05/03/17 04:15 05/03/17 04:15 05/02/17 05/03/17 05/04/17 05:59 05:59 05:59 Intake Total 700 1240 Output Total 900 650 200 Balance -200 590 -200 PT 14.3 SEC (12.0-15.0) 04/25/17 21:51 INR 1.09 (0.83-1.16) 04/25/17 21:51 high risk chart reviewed discussed with Dr Nichole CT reviewed - Physical Exam Constitutional: no apparent distress, appears nourished Cardiovascular: regular rate and rhythym, no murmur, rub, or gallop Respiratory: inspiratory crackles (dry and diffuse), respiratory distress (mild/ mod), No bronchial breath sounds, No aegophony Gastrointestinal: soft, non-tender abdomen, no palpable masses ICD10 Worksheet Patient Problems: Problems Problem Status Onset Pneumonia Acute Hypoxia Acute Elevated troponin Acute Hematochezia Acute Pulmonary fibrosis Acute s/p LVATS lung biopsies Acute ~11/30/16 Chronic steroid use Chronic ILD (interstitial lung disease) Chronic
--- NOTE | 2017-05-03 13:17 | PDINTPN ---
Veterinary Parasitologist Progress Note Assessment/Plan: Assessment/plan: 71 F with well -established IPF (FVC 58%) complicated by GERD and followed by Dr. Gillis admitted 04/25/17 with acute exacerbation thought to be 2/2 human metapneumovirus and requiring high flow O2. Her baseline was 2-3 lpm after recovering from [place] in 2015 (?) with a stable HRCT 06/2016, but her CT 2016 was worse despite systemic steroids. In 11/2016 she underwent VATS biopsy ( after unremarkable TBBx 09/2016) showing only UIP and her O2 requirement was up to 6 lpm on the DOA. She had recently started nintedanib and had several GI complaints. She was treated with IV steroids, levaquin, and vapotherm, but has not had a significant reduction in O2 needs. * IPF with acute exacerbation, possibly mediated by hMPV. Other possibilities include CHF, BOOP/BUSINESS ADMINISTRATION PROGRAM CHAIR, ARDS, aspiration. Her CT 04/29 showed diffuse and severe GG infiltrates on top of UIP, but she is at high risk for BAL given her vapotherm requirements. A procalcitonin of 0.02 makes bacterial infection, including PCP, unlikely. She started 250 mg solumedrol on 04/30, which I would agree with for about 4 days, followed by a reduction to 1 mg/kg/day (empiric BOOP rx). I dont see a trial of lasix, though she did have a BNP of >700 on , so should get some now. * PH- the combination of PH and IPF is a poor prognostic sign. There is no currently recommended PH-specific therapy in this setting, as most attempts (eg PDE inhibitoirs, ERA, and PGI2 analogues) have resulted in either systemic hypotension or worsening VQ mismatch. In addition, I dont think RV failure is driving her current dilemma; though I do favor diuretics as described above in addition to adequate oxygenation. * Nitedanib (Ofev) is designed to reduce the progression of IPF and has no role in acute exacerbations. * GERD- currently taking protonix and MOM and stable. Eventuall will require formal swallow eval. Subjective: Stable overnight, but still easily desaturates with minimal activity. Objective: Vital Signs Temp Pulse Resp BP Pulse Ox 36.7 C 69 24 H 130/73 H 90 L 05/03/17 11:49 05/03/17 11:49 05/03/17 11:49 05/03/17 11:49 05/03/17 11:49 Laboratory Results 05/03/17 04:15 05/03/17 04:15 05/02/17 05/03/17 05/04/17 05:59 05:59 05:59 Intake Total 700 1240 Output Total 900 650 200 Balance -200 590 -200 PT 14.3 SEC (12.0-15.0) 04/25/17 21:51 INR 1.09 (0.83-1.16) 04/25/17 21:51 Physical Exam - Physical Exam General Appearance: WD/WN, alert, no apparent distress EENT: PERRL/EOMI Neck: supple Respiratory: crackles, No respiratory distress, No accessory muscle use, No wheezing Cardiac/Chest: regular rate, rhythm, No edema Abdomen: non-tender, soft, No distended Skin: normal color, warm/dry, No cyanosis Lymphatic: no adenopathy Extremities: No pedal edema Neuro/Psych: alert, normal mood/affect, oriented x 3 ICD10 Worksheet Patient Problems: Problems Problem Status Onset Elevated troponin Acute Hematochezia Acute Hypoxia Acute Pneumonia Acute Pulmonary fibrosis Acute s/p LVATS lung biopsies Acute ~11/30/16 Chronic steroid use Chronic ILD (interstitial lung disease) Chronic
[2017-05-03] MEDS: FUROSEMIDE 20 MG/2 ML VIAL IVP SCH (14:22)
--- NOTE | 2017-05-03 16:33 | ASMTCMCOM ---
CM Note CM Note Notes: Patient on high O2 needs=25 lits. At this time Therapies recommending home w/HC services. Patient moving well just tires easily due to O2 needs. Date Signed: 05/03/2017 04:32 PM Electronically Signed By:Nyasia Marmolejo LCSW
[2017-05-03] MEDS: amLODIPine BESYLATE 5 MG TAB PO SCH (20:52)
[2017-05-03] MEDS: ASPIRIN 81 MG CHEWABLE TAB PO SCH (20:52)
[2017-05-04] MEDS: methylPREDNISolone SOD SUCC 125 MG/2 ML VIAL IVP SCH ×3 (00:40→12:11)
[2017-05-04] MEDS: BENZONATATE 100 MG CAP PO PRN ×3 (00:41→18:30)
[2017-05-04] MEDS: ALPRAZolam 0.25 MG TAB PO PRN ×4 (00:41→21:42)
[2017-05-04] MEDS: HYDROCODONE/APAP 5/325 TAB PO PRN ×2 (04:49→15:30)
[2017-05-04] MEDS: GUAIFENESIN/DM 10 ML UDCUP PO PRN ×3 (04:49→18:29)
[2017-05-04] MEDS: LEVOTHYROXINE 75 MCG TAB PO SCH (06:01)
[2017-05-04] MEDS: FUROSEMIDE 20 MG/2 ML VIAL IVP SCH ×2 (08:11→14:01)
[2017-05-04] MEDS: PANTOPRAZOLE SODIUM 40 MG TAB PO SCH (08:11)
[2017-05-04] MEDS: ENOXAPARIN 40 MG/0.4 ML SYR SC SCH (08:11)
[2017-05-04] MEDS: CHOLECALCIFEROL VIT D3 2,000 UNITS TAB/CAP PO SCH (08:11)
[2017-05-04] MEDS: SENNOSIDES/DOCUSATE SODIUM TAB PO SCH ×2 (08:56→21:42)
--- NOTE | 2017-05-04 10:12 | HOSPPROG ---
Hospitalist Progress Note Assessment/Plan: # acute on chronic hypoxic resp failure - underlying pulmonary fibrosis, human metapneumovirus - cont high dose steroids, high-flow O2 # p-htn - RVSP 84 mmHg # NSTEMI, type 2 - no CP; recent reported negative cath; on asa # leukocytosis - explained by steroids # hypothyroid - synthroid # htn - norvasc # hematochezia - one episode, resolved # ppx - protonix, lovenox Subjective: quite dyspneic when I am seeing her after moving to [facility] Objective: Vital Signs Temp Pulse Resp BP Pulse Ox 36.6 C 75 27 H 117/74 87 L 05/04/17 07:42 05/04/17 07:42 05/04/17 07:42 05/04/17 07:42 05/04/17 07:42 Laboratory Results 05/03/17 04:15 05/03/17 04:15 05/03/17 05/04/17 05/05/17 05:59 05:59 05:59 Intake Total 1240 1660 Output Total 650 2400 275 Balance 590 -740 -275 PT 14.3 SEC (12.0-15.0) 04/25/17 21:51 INR 1.09 (0.83-1.16) 04/25/17 21:51 high risk with very high O2 needs - Physical Exam Constitutional: other (SOB) Cardiovascular: regular rate and rhythym, no murmur, rub, or gallop Respiratory: respiratory distress (moderate-severe), other (bilat dry crackles) , No reduced air movement, No expiratory wheeze, No aegophony Gastrointestinal: soft, non-tender abdomen, no palpable masses ICD10 Worksheet Patient Problems: Problems Problem Status Onset Pneumonia Acute Hypoxia Acute Elevated troponin Acute Hematochezia Acute Pulmonary fibrosis Acute s/p LVATS lung biopsies Acute ~11/30/16 Chronic steroid use Chronic ILD (interstitial lung disease) Chronic
--- NOTE | 2017-05-04 13:27 | PDINTPN ---
Bindery Machine Setter Progress Note Assessment/Plan: Assessment/plan: 71 F with well -established IPF (FVC 58%) complicated by GERD and followed by Dr. Gillis admitted 04/25/17 with acute exacerbation thought to be 2/2 human metapneumovirus and requiring high flow O2. Her baseline was 2-3 lpm after recovering from [place] in 2015 (?) with a stable HRCT 06/2016, but her CT 2016 was worse despite systemic steroids. In 11/2016 she underwent VATS biopsy ( after unremarkable TBBx 09/2016) showing only UIP and her O2 requirement was up to 6 lpm on the DOA. She had recently started nintedanib and had several GI complaints. She was treated with IV steroids, levaquin, and vapotherm, but has not had a significant reduction in O2 needs. * IPF with acute exacerbation, possibly mediated by hMPV. Other possibilities include CHF, BOOP/MEDICAL FIELD REPRESENTATIVE, ARDS, aspiration. Her CT 04/29 showed diffuse and severe GG infiltrates on top of UIP, but she is at high risk for BAL given her vapotherm requirements. A procalcitonin of 0.02 makes bacterial infection, including PCP, unlikely. She started 250 mg solumedrol on 04/30, which I would agree with for about 4-5 days, followed by a reduction to 1 mg/kg/day (empiric BOOP rx). Started lasix 05/03 and feels better, though O2 requirement unchanged for now. Continue lasix * PH- She had mild PH on RHC 04/16/17 with a mean PAP of only 26 and PVR of 4.8 eric units. Her jump in sPAP on her current echo is likely driven in part by her acute hypoxemia and probably overestimates her true pressure. This underscores the issue of NOT attempting PH-specific therapies. * Nintedanib (Ofev) is designed to reduce the progression of IPF and has no role in acute exacerbations. * GERD- currently taking protonix and MOM and stable. Eventually will require formal swallow eval. 05/04/17 13:23 Subjective: Stable overnight and fells slightly better. Successful diuresis with low dose lasix. Objective: Vital Signs Temp Pulse Resp BP Pulse Ox 37.1 C 80 24 H 105/63 87 L 05/04/17 11:43 05/04/17 11:43 05/04/17 11:43 05/04/17 11:43 05/04/17 07:42 Laboratory Results 05/03/17 04:15 05/03/17 04:15 05/03/17 05/04/17 05/05/17 05:59 05:59 05:59 Intake Total 1240 1660 Output Total 650 2400 275 Balance 590 -740 -275 PT 14.3 SEC (12.0-15.0) 04/25/17 21:51 INR 1.09 (0.83-1.16) 04/25/17 21:51 Physical Exam - Physical Exam General Appearance: WD/WN, alert, no apparent distress EENT: PERRL/EOMI Neck: supple Respiratory: crackles, No respiratory distress, No accessory muscle use Cardiac/Chest: regular rate, rhythm, No edema Abdomen: non-tender, soft, No distended Skin: normal color, warm/dry, No cyanosis Lymphatic: no adenopathy Extremities: No pedal edema Neuro/Psych: alert, normal mood/affect, oriented x 3 ICD10 Worksheet Patient Problems: Problems Problem Status Onset Elevated troponin Acute Hematochezia Acute Hypoxia Acute Pneumonia Acute Pulmonary fibrosis Acute s/p LVATS lung biopsies Acute ~11/30/16 Chronic steroid use Chronic ILD (interstitial lung disease) Chronic
[2017-05-04] MEDS: ASPIRIN 81 MG CHEWABLE TAB PO SCH (21:42)
[2017-05-04] MEDS: amLODIPine BESYLATE 5 MG TAB PO SCH (21:43)
[2017-05-05] MEDS: GUAIFENESIN/DM 10 ML UDCUP PO PRN ×2 (00:33→20:34)
[2017-05-05] MEDS: BENZONATATE 100 MG CAP PO PRN ×2 (04:07→22:21)
[2017-05-05 04:20] LABS: PLATELET COUNT 219 10^3/uL (150-400)
[2017-05-05] MEDS ORDERED: PROTOCOL POTASSIUM 1 DOSE MISC PRN (04:40)
[2017-05-05] MEDS ORDERED: POTASSIUM CL 20 MEQ TAB PO ONE (05:15)
[2017-05-05] MEDS: LEVOTHYROXINE 75 MCG TAB PO SCH (06:39)
[2017-05-05] MEDS: CHOLECALCIFEROL VIT D3 2,000 UNITS TAB/CAP PO SCH (08:34)
[2017-05-05] MEDS: methylPREDNISolone SOD SUCC 40 MG/ML VIAL IVP SCH (08:34)
[2017-05-05] MEDS: ENOXAPARIN 40 MG/0.4 ML SYR SC SCH (08:34)
[2017-05-05] MEDS: FUROSEMIDE 20 MG/2 ML VIAL IVP SCH (08:34)
[2017-05-05] MEDS: PANTOPRAZOLE SODIUM 40 MG TAB PO SCH (08:35)
[2017-05-05] MEDS: SENNOSIDES/DOCUSATE SODIUM TAB PO SCH ×2 (08:42→17:47)
--- NOTE | 2017-05-05 11:45 | HOSPPROG ---
Hospitalist Progress Note Assessment/Plan: # acute on chronic hypoxic resp failure - underlying pulmonary fibrosis, human metapneumovirus - cont steroids (received high dose, now on solu-medrol 60mg daily), high- flow O2 # p-htn - recent R heart cath with mean pressures 26mmHg; pressure measured here in echo may be overestimate # NSTEMI, type 2 - no CP; recent reported negative cath; on asa # leukocytosis - explained by steroids # hypothyroid - synthroid # htn - norvasc # hematochezia - one episode, resolved # ppx - protonix, lovenox Subjective: still SOB with any exertion Objective: Vital Signs Temp Pulse Resp BP Pulse Ox 36.8 C 89 47 H 104/67 85 L 05/05/17 08:00 05/05/17 08:00 05/05/17 08:00 05/05/17 08:00 05/05/17 08:00 Laboratory Results 05/05/17 04:12 05/05/17 04:12 05/04/17 05/05/17 05/06/17 05:59 05:59 05:59 Intake Total 1660 1300 Output Total 2400 475 950 Balance -740 825 -950 PT 14.3 SEC (12.0-15.0) 04/25/17 21:51 INR 1.09 (0.83-1.16) 04/25/17 21:51 high risk - Physical Exam Constitutional: uncomfortable (dyspnea) Cardiovascular: regular rate and rhythym, no murmur, rub, or gallop Respiratory: inspiratory crackles (diffuse, bilat), respiratory distress (mod- severe), No clear to auscultation, No reduced air movement, No bronchial breath sounds Gastrointestinal: soft, non-tender abdomen, no palpable masses ICD10 Worksheet Patient Problems: Problems Problem Status Onset Pneumonia Acute Hypoxia Acute Elevated troponin Acute Hematochezia Acute Pulmonary fibrosis Acute s/p LVATS lung biopsies Acute ~11/30/16 Chronic steroid use Chronic ILD (interstitial lung disease) Chronic
--- NOTE | 2017-05-05 11:59 | PDINTPN ---
Regulatory Consultant Progress Note Assessment/Plan: Assessment/plan: 71 F with well -established IPF (FVC 58%) complicated by GERD and followed by Dr. Gillis admitted 04/25/17 with acute exacerbation thought to be 2/2 human metapneumovirus and requiring high flow O2. Her baseline was 2-3 lpm after recovering from [place] in 2015 (?) with a stable HRCT 06/2016, but her CT 2016 was worse despite systemic steroids. In 11/2016 she underwent VATS biopsy ( after unremarkable TBBx 09/2016) showing only UIP and her O2 requirement was up to 6 lpm on the DOA. She had recently started nintedanib and had several GI complaints. She was treated with IV steroids, levaquin, and vapotherm, but has not had a significant reduction in O2 needs. * IPF with acute exacerbation, possibly mediated by hMPV. Other possibilities include CHF, BOOP/HELMET HAT SWEATBAND PUNCHER, ARDS, aspiration. Her CT 04/29 showed diffuse and severe GG infiltrates on top of UIP, but she is at high risk for BAL given her vapotherm requirements. A procalcitonin of 0.02 makes bacterial infection, including PCP, unlikely. Completed 5 days of high dose steroids, now down to 60/ day. Started lasix 05/03 and felt better, though O2 requirement unchanged. Dc lasix. Remains stable despite high O2 requirement. Too high risk for VATS or TBBx. * PH- She had mild PH on RHC 04/16/17 with a mean PAP of only 26 and PVR of 4.8 eric units. Her jump in sPAP on her current echo is likely driven in part by her acute hypoxemia and probably overestimates her true pressure. This underscores the issue of NOT attempting PH-specific therapies. * Nintedanib (Ofev) is designed to reduce the progression of IPF and has no role in acute exacerbations. * GERD- currently taking protonix and MOM and stable. Eventually will require formal swallow eval. Subjective: c/o frequent urination; no change in O2 requirement Objective: Vital Signs Temp Pulse Resp BP Pulse Ox 36.8 C 89 47 H 104/67 85 L 05/05/17 08:00 05/05/17 08:00 05/05/17 08:00 05/05/17 08:00 05/05/17 08:00 Laboratory Results 05/05/17 04:12 05/05/17 04:12 05/04/17 05/05/17 05/06/17 05:59 05:59 05:59 Intake Total 1660 1300 Output Total 2400 475 950 Balance -740 825 -950 PT 14.3 SEC (12.0-15.0) 04/25/17 21:51 INR 1.09 (0.83-1.16) 04/25/17 21:51 Physical Exam - Physical Exam General Appearance: WD/WN, alert, no apparent distress, other (easily fatigued) EENT: PERRL/EOMI Neck: supple Respiratory: crackles, No respiratory distress, No accessory muscle use Cardiac/Chest: regular rate, rhythm, No edema Abdomen: non-tender, soft, No distended Skin: normal color, warm/dry, No cyanosis Lymphatic: no adenopathy Extremities: No pedal edema Neuro/Psych: alert, normal mood/affect, oriented x 3 ICD10 Worksheet Patient Problems: Problems Problem Status Onset Elevated troponin Acute Hematochezia Acute Hypoxia Acute Pneumonia Acute Pulmonary fibrosis Acute s/p LVATS lung biopsies Acute ~11/30/16 Chronic steroid use Chronic ILD (interstitial lung disease) Chronic
--- NOTE | 2017-05-05 14:45 | ASMTCMCOM ---
CM Note CM Note Notes: Spoke with [facility], who states the family does not need a family meeting this week. They are more interested in the first of next week, possibly Wednesday. Patient is still having severe issues with desatting quickly. She has been on 25L O2. CM will follow. Date Signed: 05/05/2017 02:45 PM Electronically Signed By:Emma Dowd LCSW
[2017-05-05] MEDS: HYDROCODONE/APAP 5/325 TAB PO PRN ×2 (17:50→22:21)
[2017-05-05] MEDS ORDERED: POTASSIUM CL 10 MEQ TAB PO ONE (18:44)
[2017-05-05] MEDS: amLODIPine BESYLATE 5 MG TAB PO SCH (20:32)
[2017-05-05] MEDS: ASPIRIN 81 MG CHEWABLE TAB PO SCH (20:32)
[2017-05-05] MEDS: ALPRAZolam 0.25 MG TAB PO PRN (22:17)
[2017-05-06] MEDS: LEVOTHYROXINE 75 MCG TAB PO SCH (04:22)
[2017-05-06] MEDS: GUAIFENESIN/DM 10 ML UDCUP PO PRN ×2 (04:22→20:32)
[2017-05-06] MEDS: HYDROCODONE/APAP 5/325 TAB PO PRN ×2 (04:23→20:32)
[2017-05-06] MEDS ORDERED: POTASSIUM CL 10 MEQ TAB PO ONE ×2 (06:09→11:00)
[2017-05-06 08:48] LABS: PLATELET COUNT 178 10^3/uL (150-400)
[2017-05-06] MEDS: ENOXAPARIN 40 MG/0.4 ML SYR SC SCH (10:03)
[2017-05-06] MEDS: PANTOPRAZOLE SODIUM 40 MG TAB PO SCH (10:04)
[2017-05-06] MEDS: methylPREDNISolone SOD SUCC 40 MG/ML VIAL IVP SCH (10:04)
[2017-05-06] MEDS: SENNOSIDES/DOCUSATE SODIUM TAB PO SCH ×2 (10:04→20:42)
[2017-05-06] MEDS: CHOLECALCIFEROL VIT D3 2,000 UNITS TAB/CAP PO SCH (10:04)
[2017-05-06] MEDS: BENZONATATE 100 MG CAP PO PRN ×2 (10:08→20:32)
[2017-05-06] MEDS: FUROSEMIDE 40 MG/4 ML VIAL IVP SCH ×2 (10:08→15:10)
[2017-05-06] MEDS: ALPRAZolam 0.25 MG TAB PO PRN ×2 (10:09→20:36)
--- NOTE | 2017-05-06 10:59 | ASMTCMCOM ---
CM Note CM Note Notes: Patient status reviewed in rounds. Per packer sausage and wiener patient is now a DNR. Her diagnosis has high mortality rate. Her is aware. They have agreed to a drug treatment and additional lasix in an attempt to provide some relief.. There has been a palliative care consult made. They are not ready to have the discussion with the palliative team at this time. A tentative meeting is to be arranged for tomorrow. CM to follow. Date Signed: 05/06/2017 10:58 AM Electronically Signed By:Sandrita Teresa RN
--- NOTE | 2017-05-06 12:00 | PDINTPN ---
Chief Dog License Inspector Progress Note Assessment/Plan: Assessment/plan: 71 F with well -established IPF (FVC 58%) complicated by GERD and followed by Dr. Gillis admitted 04/25/17 with acute exacerbation thought to be 2/2 human metapneumovirus and requiring high flow O2. Her baseline was 2-3 lpm after recovering from [place] in 2016 (?) with a stable HRCT 06/2016, but her CT 2016 was worse despite systemic steroids. In 11/2016 she underwent VATS biopsy ( after unremarkable TBBx 09/2016) showing only UIP and her O2 requirement was up to 6 lpm on the DOA. She had recently started nintedanib and had several GI complaints. She was treated with IV steroids, levaquin, and vapotherm, but has not had a significant reduction in O2 needs. * IPF with acute exacerbation, possibly mediated by hMPV. Other possibilities include CHF, BOOP/SOFTWARE ENGINEER, ARDS, aspiration. Her CT 04/29 showed diffuse and severe GG infiltrates on top of UIP, but she is at high risk for BAL given her vapotherm requirements. A procalcitonin of 0.02 makes bacterial infection, including PCP, unlikely. Completed 5 days of high dose steroids, now down to 60/ day. Started lasix 05/03 and felt better, though O2 requirement unchanged. Lasix held 05/05 and O2 requirement increased to 40 lpm+100% vapotherm; with occasional NRB to keep sat >90. Guidelines suggest mostly supportive care and steroids as the maintstay of treatment. A number of immunosuppressive therapies have been used with variable success but only in small series. Some reviews have supported a trial of cyclophosphamide despite a lack of strong data in addition to steroids. Will try 500 mg x one today and monitor for effect. Lengthy discussion with family about potential side effects including but not limited to hemorrhagic cystitis, bladder cancer, leukemias, hair loss, nausea/ vomiting, bone marrow suppression, anaphylaxis, cardiac and liver toxicity, hyponatremia, and others. Will also trial lasix once again, with perry and watch for hypotension and tachycardia. No role for biopsy or nintedanib at this point. * PH- She had mild PH on RHC 04/16/17 with a mean PAP of only 26 and PVR of 4.8 eric units. Her jump in sPAP on her current echo is likely driven in part by her acute hypoxemia and probably overestimates her true pressure. This underscores the issue of NOT attempting PH-specific therapies. * Nintedanib (Ofev) is designed to reduce the progression of IPF and has no role in acute exacerbations. * GERD- currently taking protonix and MOM and stable. Eventually will require formal swallow eval. * Dispo: Lengthy discussion about poor prognosis and high mortality with acute exacerbation of IPF. She agreed to DNR status and would only use non-invasive ventilation for periodic breaks for WOB, but not as acute direct therapy for disease deterioration. Palliative care consult requested, but not discussing hospice just yet. Subjective: Slight increase in O2 requirement, no change in symptoms of MICHAEL Objective: Vital Signs Temp Pulse Resp BP Pulse Ox 36.2 C 87 36 H 108/68 90 L 05/06/17 04:30 05/06/17 04:30 05/06/17 04:30 05/06/17 04:30 05/06/17 04:30 Laboratory Results 05/06/17 08:30 05/06/17 04:40 05/05/17 05/06/17 05/07/17 05:59 05:59 05:59 Intake Total 1300 1300 Output Total 475 1600 Balance 825 -300 PT 14.3 SEC (12.0-15.0) 04/25/17 21:51 INR 1.09 (0.83-1.16) 04/25/17 21:51 Physical Exam - Physical Exam General Appearance: WD/WN, alert, mild distress EENT: PERRL/EOMI Neck: non-tender, supple Respiratory: accessory muscle use, crackles, rhonchi, No respiratory distress Cardiac/Chest: regular rate, rhythm, No edema Abdomen: non-tender, soft, No distended Skin: normal color, warm/dry, No cyanosis Lymphatic: no adenopathy Extremities: No pedal edema Neuro/Psych: alert, normal mood/affect, oriented x 3 ICD10 Worksheet Patient Problems: Problems Problem Status Onset Elevated troponin Acute Hematochezia Acute Hypoxia Acute Pneumonia Acute Pulmonary fibrosis Acute s/p LVATS lung biopsies Acute ~11/30/16 Chronic steroid use Chronic ILD (interstitial lung disease) Chronic
[2017-05-06] MEDS ORDERED: diphenhydrAMINE 25 MG CAP PO ONE ×2 (13:30→14:45)
[2017-05-06] MEDS ORDERED: ACETAMINOPHEN 325 MG TAB PO ONE ×2 (13:30→14:45)
[2017-05-06] MEDS ORDERED: ONDANSETRON 4 MG/2 ML VIAL IVP ONE ×2 (13:30→14:45)
[2017-05-06] MEDS ORDERED: NS IV ONE (14:00)
[2017-05-06] MEDS ORDERED: CYCLOPHOSPHAMIDE IV ONE (14:00)
--- NOTE | 2017-05-06 17:08 | HOSPPROG ---
Hospitalist Progress Note Assessment/Plan: # acute on chronic hypoxic resp failure - underlying pulmonary fibrosis, acute human metapneumovirus - cyclophosphamide today - cont steroids (received high dose, now on solu-medrol 60mg daily), high- flow O2 - aggressive diuresis with lasix - goals of care discussed - family understands poor prognosis overall; DNR; palliative care consult # p-htn - recent R heart cath with mean pressures 26mmHg; pressure measured here in echo (86) may be overestimate # NSTEMI, type 2 - no CP; on asa # leukocytosis - explained by steroids # hypothyroid - synthroid # htn - norvasc # hematochezia - one episode, resolved # ppx - protonix, lovenox Subjective: patient seen with and daughter; O2 requirements up today; palliative care discussed; received cyclophoshamide Objective: Vital Signs Temp Pulse Resp BP Pulse Ox 37.1 C 101 H 21 H 79/37 L 40 L 05/06/17 16:00 05/06/17 16:00 05/06/17 16:00 05/06/17 16:00 05/06/17 16:00 Laboratory Results 05/06/17 08:30 05/06/17 04:40 05/05/17 05/06/17 05/07/17 05:59 05:59 05:59 Intake Total 1300 1300 Output Total 475 1600 Balance 825 -300 PT 14.3 SEC (12.0-15.0) 04/25/17 21:51 INR 1.09 (0.83-1.16) 04/25/17 21:51 high risk - Physical Exam Constitutional: other (dyspneic) Cardiovascular: regular rate and rhythym, no murmur, rub, or gallop Respiratory: inspiratory crackles (bilat from base to mid-lung), respiratory distress (mod) Gastrointestinal: soft, non-tender abdomen, no palpable masses ICD10 Worksheet Patient Problems: Problems Problem Status Onset Pneumonia Acute Hypoxia Acute Elevated troponin Acute Hematochezia Acute Pulmonary fibrosis Acute s/p LVATS lung biopsies Acute ~11/30/16 Chronic steroid use Chronic ILD (interstitial lung disease) Chronic
[2017-05-06] MEDS: ASPIRIN 81 MG CHEWABLE TAB PO SCH (20:32)
[2017-05-07] MEDS: HYDROCODONE/APAP 5/325 TAB PO PRN ×4 (02:37→20:09)
[2017-05-07] MEDS: ALPRAZolam 0.25 MG TAB PO PRN ×3 (02:38→20:13)
[2017-05-07] MEDS: GUAIFENESIN/DM 10 ML UDCUP PO PRN ×4 (02:38→20:09)
[2017-05-07] MEDS: LEVOTHYROXINE 75 MCG TAB PO SCH (06:49)
[2017-05-07 06:58] LABS: PLATELET COUNT 168 10^3/uL (150-400)
[2017-05-07] MEDS: SENNOSIDES/DOCUSATE SODIUM TAB PO SCH ×2 (07:44→20:11)
[2017-05-07] MEDS: PANTOPRAZOLE SODIUM 40 MG TAB PO SCH (09:00)
[2017-05-07] MEDS: methylPREDNISolone SOD SUCC 40 MG/ML VIAL IVP SCH (09:01)
[2017-05-07] MEDS: FUROSEMIDE 40 MG/4 ML VIAL IVP SCH ×2 (09:02→14:45)
[2017-05-07] MEDS: CHOLECALCIFEROL VIT D3 2,000 UNITS TAB/CAP PO SCH (09:02)
[2017-05-07] MEDS: ENOXAPARIN 40 MG/0.4 ML SYR SC SCH (09:06)
--- NOTE | 2017-05-07 09:09 | HOSPPROG ---
Hospitalist Progress Note Assessment/Plan: 71F with IPF p/w human metapneumovirus, significant worsening of her respiratory status. Received high dose steroids and cyclophosphamide (05/06). Family aware of poor prognosis, palliative care consult. # acute on chronic hypoxic resp failure - underlying pulmonary fibrosis, acute human metapneumovirus - cyclophosphamide yesterday - cont steroids (received high dose, now on solu-medrol 60mg daily), high- flow O2 - aggressive diuresis with lasix - follow contraction alkalosis - goals of care discussed - family understands poor prognosis overall; DNR; palliative care consult # p-htn - recent R heart cath with mean pressures 26mmHg; pressure measured here in echo (86) may be overestimate # NSTEMI, type 2 - no CP; on asa # leukocytosis - explained by steroids # hypothyroid - Synthroid # htn - Norvasc # hematochezia - one episode, resolved # ppx - protonix, lovenox Subjective: breathing may feel slightly better today Objective: Vital Signs Temp Pulse Resp BP Pulse Ox 36.4 C 90 21 H 110/67 90 L 05/07/17 06:00 05/07/17 07:56 05/07/17 07:56 05/07/17 07:56 05/07/17 07:56 Laboratory Results 05/07/17 06:40 05/07/17 06:40 05/06/17 05/07/17 05/08/17 05:59 05:59 05:59 Intake Total 1300 2300 Output Total 1600 2050 Balance -300 250 PT 14.3 SEC (12.0-15.0) 04/25/17 21:51 INR 1.09 (0.83-1.16) 04/25/17 21:51 high risk on high O2 - Physical Exam Constitutional: other (resp distress) Cardiovascular: regular rate and rhythym, systolic murmur Respiratory: reduced air movement (bilat bases), inspiratory crackles (from base to mid lung), bronchial breath sounds (mid r lung), respiratory distress ( mod) ICD10 Worksheet Patient Problems: Problems Problem Status Onset Pneumonia Acute Hypoxia Acute Elevated troponin Acute Hematochezia Acute Pulmonary fibrosis Acute s/p LVATS lung biopsies Acute ~11/30/16 Chronic steroid use Chronic ILD (interstitial lung disease) Chronic
[2017-05-07] MEDS: BENZONATATE 100 MG CAP PO PRN ×2 (10:14→20:09)
--- NOTE | 2017-05-07 11:50 | PDINTPN ---
Division Sergeant Progress Note Assessment/Plan: Assessment/plan: 71 F with well -established IPF (FVC 58%) complicated by GERD and followed by Dr. Gillis admitted 04/25/17 with acute exacerbation thought to be 2/2 human metapneumovirus and requiring high flow O2. Her baseline was 2-3 lpm after recovering from [place] in 2015 (?) with a stable HRCT 06/2016, but her CT 2016 was worse despite systemic steroids. In 11/2016 she underwent VATS biopsy ( after unremarkable TBBx 09/2016) showing only UIP and her O2 requirement was up to 6 lpm on the DOA. She had recently started nintedanib and had several GI complaints. She was treated with IV steroids, levaquin, and vapotherm, but has not had a significant reduction in O2 needs. * IPF with acute exacerbation, possibly mediated by hMPV. Completed 5 days of high dose steroids (250 qid), now down to 60/day (1 mg/kg). Started lasix 05/03 and felt better, though O2 requirement unchanged. Lasix held 05/05 and O2 requirement increased to 40 lpm+100% vapotherm; with occasional NRB to keep sat >90. Tolerated first dose of cyclophosphamide- monitor effect and consider 1000 mg in 2 weeks. Additional lasix resulted in symptomatic improvement, but still no change in O2 requirement 05/07. Reaching out to SD for additional suggestions. * PH- She had mild PH on RHC 04/16/17 with a mean PAP of only 26 and PVR of 4.8 eric units. Her jump in sPAP on her current echo is likely driven in part by her acute hypoxemia and probably overestimates her true pressure. This underscores the issue of NOT attempting PH-specific therapies. * Nintedanib (Ofev) is designed to reduce the progression of IPF and has no role in acute exacerbations. * GERD- currently taking protonix and MOM and stable. Eventually will require formal swallow eval. * Dispo: Lengthy discussion about poor prognosis and high mortality with acute exacerbation of IPF on 05/06. She agreed to DNR status and would only use non- invasive ventilation for periodic breaks for WOB, but not as acute direct therapy for disease deterioration. Palliative care consult requested, but not discussing hospice just yet. Subjective: feels less sob today and was treated with cyclosporine last pm without incident. Objective: Vital Signs Temp Pulse Resp BP Pulse Ox 35.7 C L 91 21 H 103/51 L 88 L 05/07/17 09:07 05/07/17 09:07 05/07/17 07:56 05/07/17 09:07 05/07/17 09:07 Laboratory Results 05/07/17 06:40 05/07/17 06:40 05/06/17 05/07/17 05/08/17 05:59 05:59 05:59 Intake Total 1300 2300 Output Total 1600 2050 Balance -300 250 PT 14.3 SEC (12.0-15.0) 04/25/17 21:51 INR 1.09 (0.83-1.16) 04/25/17 21:51 Physical Exam - Physical Exam General Appearance: WD/WN, alert, no apparent distress EENT: PERRL/EOMI Neck: supple Respiratory: crackles (at bases and probably improved from yesterday), No respiratory distress, No accessory muscle use, No rales, No rhonchi, No wheezing Cardiac/Chest: regular rate, rhythm, No edema Abdomen: non-tender, soft, No distended Skin: normal color, warm/dry, No cyanosis Lymphatic: no adenopathy Extremities: No pedal edema Neuro/Psych: alert, normal mood/affect, oriented x 3 ICD10 Worksheet Patient Problems: Problems Problem Status Onset Elevated troponin Acute Hematochezia Acute Hypoxia Acute Pneumonia Acute Pulmonary fibrosis Acute s/p LVATS lung biopsies Acute ~11/30/16 Chronic steroid use Chronic ILD (interstitial lung disease) Chronic
--- NOTE | 2017-05-07 16:31 | ASMTCMCOM ---
CM Note CM Note Notes: Palliative care consult done with Luisana Galicia and myself with patient and her family. The patient is quite clear and realistic of her prognosis, treatments and expectations. She reports she is very happy with the care she has received here. The patient and her are very open to hearing about any help available to them and to having palliative care and any medical equipment that might make the transition to home easier. They have [employer] home oxygen and her limits exceeds the provision of home oxygen at this time but we can certainly see if any other resources are available to bridge higher oxygen needs. She and her family are very pragmatic and open about the ling disease and it's progression and effect on her livelihood. Referral to be placed to palliative care.. Final discharge needs to be determined, CM to follow. Date Signed: 05/07/2017 04:30 PM Electronically Signed By:Sandrita Teresa RN
[2017-05-07] MEDS: ASPIRIN 81 MG CHEWABLE TAB PO SCH (20:09)
[2017-05-08] MEDS: HYDROCODONE/APAP 5/325 TAB PO PRN ×3 (00:15→09:48)
[2017-05-08] MEDS: LEVOTHYROXINE 75 MCG TAB PO SCH (05:00)
[2017-05-08 05:25] LABS: PLATELET COUNT 176 10^3/uL (150-400)
[2017-05-08] MEDS: SENNOSIDES/DOCUSATE SODIUM TAB PO SCH ×2 (08:27→20:14)
[2017-05-08] MEDS: ALPRAZolam 0.25 MG TAB PO PRN (08:56)
[2017-05-08] MEDS: CHOLECALCIFEROL VIT D3 2,000 UNITS TAB/CAP PO SCH (08:56)
[2017-05-08] MEDS: PANTOPRAZOLE SODIUM 40 MG TAB PO SCH (08:56)
[2017-05-08] MEDS: BENZONATATE 100 MG CAP PO PRN ×3 (08:56→19:48)
[2017-05-08] MEDS: ENOXAPARIN 40 MG/0.4 ML SYR SC SCH (08:56)
[2017-05-08] MEDS: FUROSEMIDE 40 MG/4 ML VIAL IVP SCH ×2 (08:56→14:05)
[2017-05-08] MEDS: methylPREDNISolone SOD SUCC 40 MG/ML VIAL IVP SCH (08:57)
[2017-05-08] MEDS: HYDROmorphONE/DILAUDID 2 MG/ML INJ IVP PRN ×3 (09:52→23:35)
--- NOTE | 2017-05-08 11:30 | PDINTPN ---
Piano Refinisher Progress Note Assessment/Plan: Assessment/plan: 71 F with well -established IPF (FVC 58%) complicated by GERD and followed by Dr. Gillis admitted 04/25/17 with acute exacerbation thought to be 2/2 human metapneumovirus and requiring high flow O2. Her baseline was 2-3 lpm after recovering from [place] in 2015 (?) with a stable HRCT 06/2016, but her CT 2016 was worse despite systemic steroids. In 11/2016 she underwent VATS biopsy ( after unremarkable TBBx 09/2016) showing only UIP and her O2 requirement was up to 6 lpm on the DOA. She had recently started nintedanib and had several GI complaints. She was treated with IV steroids, levaquin, and vapotherm, but has not had a significant reduction in O2 needs. * IPF with acute exacerbation, possibly mediated by hMPV. Completed 5 days of high dose steroids (250 qid), now down to 60/day (1 mg/kg). Started lasix 05/03 and felt better, though O2 requirement unchanged. Lasix held 05/05 and O2 requirement increased to 40 lpm+100% vapotherm; with occasional NRB to keep sat >90. Tolerated first dose of cyclophosphamide- monitor effect and consider 1000 mg in 2 weeks. Additional lasix resulted in symptomatic improvement, but still no change in O2 requirement 05/07. Long talk today about possible end of life. Palliative care saw her already. Will try bipap today for comfort only- dc if she doesnt tolerate it and no sedation if using bipap. * CP- atypical sounding, but will check troponin and ekg. * headache- likely mediated by hypoxia- dont favor narcotics for RAMEY- use tylenol instead * PH- She had mild PH on RHC 04/16/17 with a mean PAP of only 26 and PVR of 4.8 eric units. Her jump in sPAP on her current echo is likely driven in part by her acute hypoxemia and probably overestimates her true pressure. This underscores the issue of NOT attempting PH-specific therapies. * Nintedanib (Ofev) is designed to reduce the progression of IPF and has no role in acute exacerbations. * GERD- currently taking protonix and MOM and stable. Eventually will require formal swallow eval. * Dispo: Lengthy discussion about poor prognosis and high mortality with acute exacerbation of IPF on 05/06. She agreed to DNR status and would only use non- invasive ventilation for periodic breaks for WOB, but not as acute direct therapy for disease deterioration. Palliative care consult requested, but not discussing hospice just yet. 05/08/17 11:27 Subjective: c/o right sided CP and RAMEY early this am. Sats remain marginal and needed NRB in addition to vapotherm Objective: Vital Signs Temp Pulse Resp BP Pulse Ox 36.4 C 108 H 25 H 96/51 L 84 L 05/08/17 07:35 05/08/17 07:35 05/08/17 07:35 05/08/17 07:35 05/08/17 07:35 Laboratory Results 05/08/17 05:00 05/08/17 05:00 05/07/17 05/08/17 05/09/17 05:59 05:59 05:59 Intake Total 2300 250 Output Total 2050 2200 Balance 250 -1950 PT 14.3 SEC (12.0-15.0) 04/25/17 21:51 INR 1.09 (0.83-1.16) 04/25/17 21:51 Physical Exam - Physical Exam General Appearance: WD/WN, alert, mild distress EENT: PERRL/EOMI Neck: supple Respiratory: accessory muscle use, decreased breath sounds, crackles, No respiratory distress Cardiac/Chest: regular rate, rhythm, No edema Abdomen: non-tender, soft, No distended Skin: normal color, warm/dry, No cyanosis Lymphatic: no adenopathy Extremities: No pedal edema Neuro/Psych: alert, normal mood/affect, oriented x 3 ICD10 Worksheet Patient Problems: Problems Problem Status Onset Elevated troponin Acute Hematochezia Acute Hypoxia Acute Pneumonia Acute Pulmonary fibrosis Acute s/p LVATS lung biopsies Acute ~11/30/16 Chronic steroid use Chronic ILD (interstitial lung disease) Chronic
[2017-05-08] MEDS ORDERED: POTASSIUM CL 10 MEQ TAB PO ONE (11:42)
--- NOTE | 2017-05-08 11:55 | CPEKG ---
Heart Rate: 93 RR Interval: 645 P-R Interval: 112 QRSD Interval: 108 QT Interval: 404 QTC Interval: 503 P Rebecca: 23 QRS Rebecca: -35 T Wave Rebecca: 157 EKG Severity - ABNORMAL ECG - EKG Impression: SINUS RHYTHM EKG Impression: LEFT VENTRICULAR HYPERTROPHY EKG Impression: BORDERLINE PROLONGED QT INTERVAL EKG Impression: NONSPECIFIC ST_T WAVE ABNORMAILITES Electronically Signed By: Mil Zamora 11-May-2017 11:35:27
--- NOTE | 2017-05-08 17:16 | HOSPPROG ---
Hospitalist Progress Note Assessment/Plan: Subjective Follow-up on acute on chronic hypoxic respiratory failure and idiopathic pulmonary fibrosis Patient did develop some chest discomfort last evening. She has not had any recurrence discomfort today. Her family member was present at the bedside stated she has been resting much of the morning as it did not sound like she slept very well last evening. I did the awaken her and she was quite conversant and able to converse but did get somewhat short of breath. Objective Vital signs as detailed below Exam General-patient arousable conversant no acute distress CC appeared oriented Lungs-generally poor air movement throughout with bibasilar crackles I do not appreciate significant wheezing Heart-regular no murmurs appreciated Abdomen-soft nontender nondistended normal bowel sounds -no Geronimo catheter in place Extremities-no significant pitting edema Skin-no concerning skin rashes noted Labs as detailed below Assessment plan 1. Acute on chronic hypoxic respiratory failure suspecting this is secondary to his acute human metapneumovirus infection on top of underlying idiopathic pulmonary fibrosis. Appreciate Dr. Nichole's assistance on the case and recommend continuing per his recommendations. She is currently on Solu-Medrol and Lasix. 2. Pulmonary hypertension -she is on chronic oxygen at home. 3. Leukocytosis-suspecting steroid response. Monitor for any fevers. 4. Chest pain-no recurrence chest pain this morning. Her troponin was undetectable. I reviewed her EKG personally and did not see any significant ST segment changes. 5. Hypertension-this appears controlled with low normal blood pressure readings. She is not on any antihypertensive therapy other than Lasix at this time. 6. Hypothyroidism-continue current dosing of levothyroxine. 7. DVT prophylaxis-continue current Lovenox 8. GI prophylaxis-patient is currently on Protonix 9. Disposition-patient is currently do not attempt resuscitation code status. Palliative Care was also consulted on her case. Continue current efforts to improve her respiratory status and will see how she does in the coming days. Objective: Vital Signs Temp Pulse Resp BP Pulse Ox 36.6 C 100 30 H 112/66 90 L 05/08/17 12:00 05/08/17 12:00 05/08/17 12:00 05/08/17 12:00 05/08/17 12:00 Laboratory Results 05/08/17 05:00 05/08/17 05:00 05/07/17 05/08/1718 05:59 05:59 05:59 Intake Total 2300 250 Output Total 20490 Balance 250 -1950 PT 14.3 SEC (12.0-15.0) 04/25/17 21:51 INR 1.09 (0.83-1.16) 04/25/17 21:51 ICD10 Worksheet Patient Problems: Problems Problem Status Onset Elevated troponin Acute Hematochezia Acute Hypoxia Acute Pneumonia Acute Pulmonary fibrosis Acute s/p LVATS lung biopsies Acute ~11/30/16 Chronic steroid use Chronic ILD (interstitial lung disease) Chronic
[2017-05-08] MEDS: GUAIFENESIN/DM 10 ML UDCUP PO PRN (19:48)
[2017-05-08] MEDS: ASPIRIN 81 MG CHEWABLE TAB PO SCH (19:48)
[2017-05-09] MEDS: GUAIFENESIN/DM 10 ML UDCUP PO PRN ×4 (03:18→21:26)
[2017-05-09] MEDS: HYDROCODONE/APAP 5/325 TAB PO PRN (05:57)
[2017-05-09] MEDS: LEVOTHYROXINE 75 MCG TAB PO SCH (05:57)
[2017-05-09 06:16] LABS: PLATELET COUNT 210 10^3/uL (150-400)
[2017-05-09] MEDS ORDERED: POTASSIUM CL 10 MEQ TAB PO ONE ×2 (07:27→23:34)
[2017-05-09] MEDS: methylPREDNISolone SOD SUCC 40 MG/ML VIAL IVP SCH (08:18)
[2017-05-09] MEDS: PANTOPRAZOLE SODIUM 40 MG TAB PO SCH (08:18)
[2017-05-09] MEDS: CHOLECALCIFEROL VIT D3 2,000 UNITS TAB/CAP PO SCH (08:18)
[2017-05-09] MEDS: FUROSEMIDE 40 MG/4 ML VIAL IVP SCH ×2 (08:19→14:44)
[2017-05-09] MEDS: ALPRAZolam 0.25 MG TAB PO PRN (08:20)
[2017-05-09] MEDS: ENOXAPARIN 40 MG/0.4 ML SYR SC SCH (08:20)
[2017-05-09] MEDS: SENNOSIDES/DOCUSATE SODIUM TAB PO SCH (08:23)
--- NOTE | 2017-05-09 11:22 | PDINTPN ---
Controlled Area Checker Progress Note Assessment/Plan: Assessment/plan: 71 F with well -established IPF (FVC 58%) complicated by GERD and followed by Dr. Gillis admitted 04/25/17 with acute exacerbation thought to be 2/2 human metapneumovirus and requiring high flow O2. Her baseline was 2-3 lpm after recovering from [place] in 2015 (?) with a stable HRCT 06/2016, but her CT 2016 was worse despite systemic steroids. In 11/2016 she underwent VATS biopsy ( after unremarkable TBBx 09/2016) showing only UIP and her O2 requirement was up to 6 lpm on the DOA. She had recently started nintedanib and had several GI complaints. She was treated with IV steroids, levaquin, and vapotherm, but has not had a significant reduction in O2 needs. * IPF with acute exacerbation, possibly mediated by hMPV. Completed 5 days of high dose steroids (250 qid), now down to 60/day (1 mg/kg). Started lasix 05/03 and felt better, though O2 requirement unchanged. Lasix held 05/05 and O2 requirement increased to 40 lpm+100% vapotherm; with occasional NRB to keep sat >90. Tolerated first dose of cyclophosphamide- monitor effect and consider 1000 mg in 2 weeks. Additional lasix resulted in symptomatic improvement, but still no change in O2 requirement 05/07. Long talk about possible end of life. Palliative care saw her already. Tried bipap for comfort 05/08 without success, so suggested she could try it again if she requests. * CP- atypical sounding, and troponin and ekg negative. * headache- resolved. likely mediated by hypoxia- dont favor narcotics for RAMEY- use tylenol instead * PH- She had mild PH on RHC 04/16/17 with a mean PAP of only 26 and PVR of 4.8 eric units. Her jump in sPAP on her current echo is likely driven in part by her acute hypoxemia and probably overestimates her true pressure. This underscores the issue of NOT attempting PH-specific therapies. * Nintedanib (Ofev) is designed to reduce the progression of IPF and has no role in acute exacerbations. * GERD- currently taking protonix and MOM and stable. Eventually will require formal swallow eval. * Dispo: Lengthy discussion about poor prognosis and high mortality with acute exacerbation of IPF on 05/06. She agreed to DNR status and would only use non- invasive ventilation for periodic breaks for WOB, but not as acute direct therapy for disease deterioration. Palliative care consult requested, but not discussing hospice just yet. Subjective: No events; c/o positional back pain, but no cp. Objective: Vital Signs Temp Pulse Resp BP Pulse Ox 36.4 C 106 H 21 H 107/74 84 L 05/09/17 08:00 05/09/17 08:00 05/09/17 08:00 05/09/17 08:00 05/09/17 08:00 Laboratory Results 05/09/17 06:00 05/09/17 06:00 05/08/17 05/09/17 05/10/17 05:59 05:59 05:59 Intake Total 250 950 Output Total 2200 1650 Balance -1950 -700 PT 14.3 SEC (12.0-15.0) 04/25/17 21:51 INR 1.09 (0.83-1.16) 04/25/17 21:51 Physical Exam - Physical Exam General Appearance: alert, mild distress EENT: PERRL/EOMI Neck: supple Respiratory: accessory muscle use, crackles, No respiratory distress, No wheezing Cardiac/Chest: regular rate, rhythm, No edema Abdomen: non-tender, soft, No distended Skin: normal color, warm/dry, No cyanosis Lymphatic: no adenopathy Extremities: No pedal edema Neuro/Psych: alert, normal mood/affect, oriented x 3 ICD10 Worksheet Patient Problems: Problems Problem Status Onset Elevated troponin Acute Hematochezia Acute Hypoxia Acute Pneumonia Acute Pulmonary fibrosis Acute s/p LVATS lung biopsies Acute ~11/30/16 Chronic steroid use Chronic ILD (interstitial lung disease) Chronic
[2017-05-09] MEDS: HYDROmorphONE/DILAUDID 2 MG/ML INJ IVP PRN ×2 (11:24→21:26)
--- NOTE | 2017-05-09 16:33 | HOSPPROG ---
Hospitalist Progress Note Assessment/Plan: Subjective Follow-up on acute on chronic hypoxic respiratory failure and idiopathic pulmonary fibrosis Patient was seen in the afternoon with her family present at the bedside. She is awake and alert and appears more energetic. She still complains of chest discomfort but this seems to be chest wall pain related to the coughing that she has been doing over the past 2 weeks. We reviewed her troponin and ECG from yesterday and reassured her that there did not appear to be any cardiac issues going on. Objective Vital signs as detailed below On exam, patient is awake alert conversant no acute distress. She has her Ventimask cough currently and appears comfortable. On cardiac exam, tachycardic regular no murmurs appreciated. On lung exam, normal respiratory effort she does have crackles at her bases which I suspect are chronic for her. There is a slight expiratory wheeze in the right upper lung field. On abdominal exam, soft nontender nondistended. , no Geronimo catheter in place. Extremities, no significant pitting edema. Musculoskeletal, no calf tenderness with palpation. Skin, no concerning skin rashes noted. Labs as detailed below. Assessment and plan 1. Acute on chronic hypoxic respiratory failure-suspecting flare-up of idiopathic pulmonary fibrosis along with acute human metapneumovirus infection. Clinically the patient looks much better today. Continue Solu-Medrol and Lasix and additional recommendations per Pulmonary Critical Care Medicine. 2. Pulmonary hypertension-patient is on home oxygen. 3. Leukocytosis-patient has had an elevated white blood cell count through the past several days. It did increase to 20 today. No fevers have been noted she is however on a high dose of Solu-Medrol. Continue to trend and watch for development of any fevers. 4. Chest pain-I suspect this is chest wall pain from the coughing she has been experiencing over the past 2 weeks. Her ECG and troponin were reassuring and did not point towards any cardiac cause. 5. Hypertension-her blood pressures appear well controlled her only antihypertensive agent is currently Lasix. 6. Hypothyroidism-continue current levothyroxine 75 mcg daily. 7. DVT prophylaxis-patient is currently on Lovenox. 8. Disposition-continue work with PT and OT as able. Patient is a do not attempt resuscitation code status. Palliative Care has also been consulted on her case. I am hopeful in the coming days should be able to increase her activity but I would not be surprised if she needs short-term rehab placement considering her overall debility. Objective: Vital Signs Temp Pulse Resp BP Pulse Ox 36.4 C 102 H 26 H 122/89 H 90 L 05/09/17 08:00 05/09/17 14:45 05/09/17 14:45 05/09/17 14:45 05/09/17 14:45 Laboratory Results 05/09/17 06:00 05/09/17 06:00 05/08/17 05/09/17 05/10/17 05:59 05:59 05:59 Intake Total 250 950 Output Total 2200 1650 675 Balance -1950 -700 -675 PT 14.3 SEC (12.0-15.0) 04/25/17 21:51 INR 1.09 (0.83-1.16) 04/25/17 21:51 ICD10 Worksheet Patient Problems: Problems Problem Status Onset Elevated troponin Acute Hematochezia Acute Hypoxia Acute Pneumonia Acute Pulmonary fibrosis Acute s/p LVATS lung biopsies Acute ~11/30/16 Chronic steroid use Chronic ILD (interstitial lung disease) Chronic
[2017-05-09] MEDS: BENZONATATE 100 MG CAP PO PRN ×2 (17:10→21:26)
[2017-05-09] MEDS: ASPIRIN 81 MG CHEWABLE TAB PO SCH (21:26)
[2017-05-10] MEDS: SENNOSIDES/DOCUSATE SODIUM TAB PO SCH ×3 (00:50→20:20)
[2017-05-10] MEDS: LEVOTHYROXINE 75 MCG TAB PO SCH (06:08)
[2017-05-10] MEDS: HYDROCODONE/APAP 5/325 TAB PO PRN ×3 (06:08→20:18)
[2017-05-10 06:19] LABS: PLATELET COUNT 200 10^3/uL (150-400)
[2017-05-10] MEDS ORDERED: POTASSIUM CL 10 MEQ TAB PO ONE (07:53)
[2017-05-10] MEDS: CHOLECALCIFEROL VIT D3 2,000 UNITS TAB/CAP PO SCH (07:53)
[2017-05-10] MEDS: BENZONATATE 100 MG CAP PO PRN ×2 (07:53→20:19)
[2017-05-10] MEDS: PANTOPRAZOLE SODIUM 40 MG TAB PO SCH (07:54)
[2017-05-10] MEDS: methylPREDNISolone SOD SUCC 40 MG/ML VIAL IVP SCH (07:54)
[2017-05-10] MEDS: ALPRAZolam 0.25 MG TAB PO PRN ×2 (07:58→21:54)
[2017-05-10] MEDS: ENOXAPARIN 40 MG/0.4 ML SYR SC SCH (08:00)
--- NOTE | 2017-05-10 09:24 | HOSPPROG ---
Hospitalist Progress Note Assessment/Plan: Assessment and plan # Acute on chronic hypoxic respiratory failure- suspect exacerbation of IPF along with acute human metapneumovirus infection. No significant response to Lasix. May be nearing end of life. Palliative care involved. -cont IV solumedrol, Lasix -trial xopenex nebs -speech eval requested to eval for possible aspiration component -cyclophosphamide per pulm -prn bipap -cont vapotherm, requiring 40 LPM for ~2 weeks # Pulmonary hypertension- PAP just 26 on recent RHC, may be increased from acute acute hypoxemia. -no further tx per pulm recs # Leukocytosis- fluctuating, suspect 2/2 steroids # Chest pain- Suspect chest wall pain 2/2 coughing vs GERD. Her ECG and troponin reassuring and she had clear cors on recent angiogram and also recent neg stress test. # GERD - cont PPI, adding her home Zantac dose at night. Speech/swallow eval as above, ?if this may be a factor in her worsening respiratory status. # Hypothyroidism-continue current levothyroxine 75 mcg daily. # DVT prophylaxis-patient is currently on Lovenox. # Disposition- cont inpt, PT/OT. Continues to require high flow O2. Palliative care involved, also discussed hospice. Pt would like to dispo home, though may need SNF or LTAC with high O2 needs. 30 minutes spent at bedside with pt and discussing goals of care. Subjective: Pt remains SOB at rest. Still has intermittent coughing fits. No fevers. No CP today. No fevers. Taking some po. Unsure if she has h/o aspiration. Objective: Vital Signs Temp Pulse Resp BP Pulse Ox 36.6 C 112 H 33 H 88/58 L 87 L 05/10/17 07:48 05/10/17 07:48 05/10/17 07:48 05/10/17 07:48 05/10/17 07:48 Laboratory Results 05/10/17 05:52 05/10/17 05:52 05/09/17 05/10/17 05/11/17 05:59 05:59 05:59 Intake Total 950 2000 Output Total 1650 1450 Balance -700 550 PT 14.3 SEC (12.0-15.0) 04/25/17 21:51 INR 1.09 (0.83-1.16) 04/25/17 21:51 - Physical Exam Constitutional: no apparent distress Eyes: PERRL Ears, Nose, Mouth, Throat: moist mucous membranes Cardiovascular: regular rate and rhythym Respiratory: reduced air movement, inspiratory crackles, respiratory distress Gastrointestinal: normoactive bowel sounds, soft, non-tender abdomen Skin: warm Musculoskeletal: full muscle strength Neurologic: AAOx3 Psychiatric: interacting appropriately ICD10 Worksheet Patient Problems: Problems Problem Status Onset Elevated troponin Acute Hematochezia Acute Hypoxia Acute Pneumonia Acute Pulmonary fibrosis Acute s/p LVATS lung biopsies Acute ~11/30/16 Chronic steroid use Chronic ILD (interstitial lung disease) Chronic
[2017-05-10] MEDS: FUROSEMIDE 40 MG/4 ML VIAL IVP SCH ×2 (11:09→16:30)
--- NOTE | 2017-05-10 11:49 | ASMTCMCOM ---
CM Note CM Note Notes: Family and patient would like to return home. Patient will need a high flow O2 at home and Hospice. Will check with Hospice to see what they could provide. Date Signed: 05/10/2017 11:48 AM Electronically Signed By:Nyasia Marmolejo LCSW
[2017-05-10] MEDS: GUAIFENESIN/DM 10 ML UDCUP PO PRN ×3 (14:00→21:54)
[2017-05-10] MEDS: LEVALBUTEROL 1.25 MG/3 ML DEYVIAL IH SCH ×3 (14:09→21:25)
--- NOTE | 2017-05-10 15:40 | PDINTPN ---
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 Gillis admitted 04/25/17 with acute exacerbation thought to be 2/2 human metapneumovirus and requiring high flow O2. Her baseline was 2-3 lpm after recovering from [place] in 2015 (?) with a stable HRCT 06/2016, but her CT 2016 was worse despite systemic steroids. In 11/2016 she underwent VATS biopsy ( after unremarkable TBBx 09/2016) showing only UIP and her O2 requirement was up to 6 lpm on the DOA. She had recently started nintedanib and had several GI complaints. She was treated with IV steroids, levaquin, and vapotherm, but has not had a significant reduction in O2 needs. * IPF with acute exacerbation, possibly mediated by hMPV. OPportunistic infection such as PCP possible but quite unlikely given lacof fever. Additionally, performing a bronchoscopy would be quite high-risk. Completed 5 days of high dose steroids (250 qid), now down to 60/day (1 mg/kg). Started lasix 05/03 and felt better, though O2 requirement unchanged. Lasix held 05/05 and O2 requirement increased to 40 lpm+100% vapotherm; with occasional NRB to keep sat >90. Tolerated first dose of cyclophosphamide- monitor effect and consider 1000 mg in 2 weeks. Additional lasix resulted in symptomatic improvement, but still no change in O2 requirement 05/07. Palliative care saw her already. Tried bipap for comfort 05/08 without success, so suggested she could try it again if she requests. * CP- atypical sounding, and troponin and ekg negative. * headache- resolved. likely mediated by hypoxia- dont favor narcotics for RAMEY- use tylenol instead * PH- She had mild PH on RHC 04/16/17 with a mean PAP of only 26 and PVR of 4.8 eric units. Her jump in sPAP on her current echo is likely driven in part by her acute hypoxemia and probably overestimates her true pressure. This underscores the issue of NOT attempting PH-specific therapies. * Nintedanib (Ofev) is designed to reduce the progression of IPF and has no role in acute exacerbations. * GERD- currently taking protonix and MOM and stable. Eventually will require formal swallow eval. * Plan: Dispo: Lengthy discussion about poor prognosis and high mortality with acute exacerbation of IPF on 05/[address] Nichole. I discussed options at this point, including transfer to [facility], Continued acute care (likely with transfer to [facility]), and hospice, either in-home or at [place]. It would be helpful to know how stable she will be with transport on lower oxygen flow than she is currently on. Will do a trial of NRB facemask + NC O2 at about 12 liters/minute, which is what can be delived during transport and at hospice. Will decrease Lasix, we've likely gotten most of the benefit we will get from that. 05/10/17 16:25 Subjective: Dyspnea stable. Appetite fair. No cough Objective: Vital Signs Temp Pulse Resp BP Pulse Ox 36.6 C 110 H 40 H 114/61 87 L 05/10/17 11:35 05/10/17 14:11 05/10/17 14:11 05/10/17 11:35 05/10/17 14:11 Laboratory Results 05/10/17 05:52 05/10/17 05:52 05/09/17 05/10/17 05/11/17 05:59 05:59 05:59 Intake Total 950 2000 500 Output Total 1650 1450 Balance -700 550 500 PT 14.3 SEC (12.0-15.0) 04/25/17 21:51 INR 1.09 (0.83-1.16) 04/25/17 21:51 Physical Exam - Physical Exam General Appearance: alert, mild distress EENT: normal ENT inspection Neck: normal inspection Respiratory: crackles Cardiac/Chest: tachycardia Abdomen: normal bowel sounds, non-tender Skin: normal color, warm/dry Extremities: normal inspection Neuro/Psych: alert, normal mood/affect, oriented x 3, No motor weakness ICD10 Worksheet Patient Problems: Problems Problem Status Onset Elevated troponin Acute Hematochezia Acute Hypoxia Acute Pneumonia Acute Pulmonary fibrosis Acute s/p LVATS lung biopsies Acute ~11/30/16 Chronic steroid use Chronic ILD (interstitial lung disease) Chronic
--- NOTE | 2017-05-10 16:08 | ASMTCMCOM ---
CM Note CM Note Notes: Patient on high volume of O2. Contacted [facility] to determine how many lits could be provided at the [facility]. They report that they could provide 30 lits. [facility] transport could provide 25 lits. Spoke with [employer], O2 company used by [facility] at home to see what could be provided at home, they could provide 20 lits. Patient could possibly go to the [facility]. May have to stay at [facility]. Date Signed: 05/10/2017 04:08 PM Electronically Signed By:Nyasia Marmolejo LCSW
[2017-05-10] MEDS: HYDROmorphONE/DILAUDID 2 MG/ML INJ IVP PRN (17:54)
[2017-05-10] MEDS: ALTEPLASE 2 MG VIAL IVP PRN (18:11)
[2017-05-10] MEDS: ASPIRIN 81 MG CHEWABLE TAB PO SCH (20:18)
[2017-05-10] MEDS: FAMOTIDINE 20 MG TAB PO SCH (20:19)
[2017-05-10] MEDS ORDERED: RANITIDINE SYRUP 15 MG/1 ML UDSYR PO SCH (21:00)
[2017-05-11] MEDS: ALTEPLASE 2 MG VIAL IVP PRN (05:02)
[2017-05-11] MEDS: BENZONATATE 100 MG CAP PO PRN (05:41)
[2017-05-11] MEDS: LEVOTHYROXINE 75 MCG TAB PO SCH (05:41)
[2017-05-11] MEDS: GUAIFENESIN/DM 10 ML UDCUP PO PRN ×2 (05:41→14:59)
[2017-05-11] MEDS: LEVALBUTEROL 1.25 MG/3 ML DEYVIAL IH SCH ×4 (05:43→20:45)
[2017-05-11 05:58] LABS: PLATELET COUNT 204 10^3/uL (150-400)
[2017-05-11] MEDS: HYDROCODONE/APAP 5/325 TAB PO PRN ×4 (06:30→22:09)
[2017-05-11] MEDS ORDERED: POTASSIUM CL 10 MEQ TAB PO ONE (07:30)
[2017-05-11] MEDS: SENNOSIDES/DOCUSATE SODIUM TAB PO SCH ×2 (08:47→21:01)
[2017-05-11] MEDS: PANTOPRAZOLE SODIUM 40 MG TAB PO SCH (08:59)
[2017-05-11] MEDS: FUROSEMIDE 40 MG/4 ML VIAL IVP SCH ×2 (08:59→14:59)
[2017-05-11] MEDS: methylPREDNISolone SOD SUCC 40 MG/ML VIAL IVP SCH (08:59)
[2017-05-11] MEDS: CHOLECALCIFEROL VIT D3 2,000 UNITS TAB/CAP PO SCH (08:59)
[2017-05-11] MEDS: ENOXAPARIN 40 MG/0.4 ML SYR SC SCH (09:00)
--- NOTE | 2017-05-11 13:39 | PDINTPN ---
Interactive Media Marketing Specialist Progress Note Assessment/Plan: Assessment: 71 F with well -established IPF (FVC 58%) complicated by GERD and followed by Dr. Gillis admitted 04/25/17 with acute exacerbation thought to be 2/2 human metapneumovirus and requiring high flow O2. Her baseline was 2-3 lpm after recovering from [place] in 2015 (?) with a stable HRCT 06/2016, but her CT 2016 was worse despite systemic steroids. In 11/2016 she underwent VATS biopsy ( after unremarkable TBBx 09/2016) showing only UIP and her O2 requirement was up to 6 lpm on the DOA. She had recently started nintedanib and had several GI complaints. She was treated with IV steroids, levaquin, and vapotherm, but has not had a significant reduction in O2 needs. * IPF with acute exacerbation, possibly mediated by hMPV. OPportunistic infection such as PCP possible but quite unlikely given lacof fever. Additionally, performing a bronchoscopy would be quite high-risk. Completed 5 days of high dose steroids (250 qid), now down to 60/day (1 mg/kg). Started lasix 05/03 and felt better, though O2 requirement unchanged. Lasix held 05/05 and O2 requirement increased to 40 lpm+100% vapotherm; with occasional NRB to keep sat >90. Tolerated first dose of cyclophosphamide- monitor effect and consider 1000 mg in 2 weeks. Additional lasix resulted in symptomatic improvement, but still no change in O2 requirement 05/07. Palliative care saw her already. Tried bipap for comfort 05/08 without success, so suggested she could try it again if she requests. * CP- atypical sounding, and troponin and ekg negative. * headache- resolved. likely mediated by hypoxia- dont favor narcotics for RAMEY- use tylenol instead * PH- She had mild PH on RHC 04/16/17 with a mean PAP of only 26 and PVR of 4.8 eric units. Her jump in sPAP on her current echo is likely driven in part by her acute hypoxemia and probably overestimates her true pressure. This underscores the issue of NOT attempting PH-specific therapies. * Nintedanib (Ofev) is designed to reduce the progression of IPF and has no role in acute exacerbations. * GERD- currently taking protonix and MOM and stable. Eventually will require formal swallow eval. * Plan: Dispo: Lengthy discussion about poor prognosis and high mortality with acute exacerbation of IPF on 05/[address] Nichole. I discussed options at this point again today, including transfer to [facility], Continued acute care (likely with transfer to [facility]), and hospice, either in-home or at [place]. Oxygen turned down to 30+15 liters, sats upper 80s, still haven't done a trial at 20-25 liters/minute. Will do a trial of NRB facemask + NC O2 at about 12 liters/minute, which is what can be delivered during transport and at hospice. Will decrease Lasix, we've likely gotten most of the benefit we will get from that. 05/11/17 13:48 Subjective: Feels a bit better. Still dyspneic. Objective: Vital Signs Temp Pulse Resp BP Pulse Ox 36.4 C 113 H 28 H 105/61 86 L 05/11/17 11:33 05/11/17 12:03 05/11/17 12:03 05/11/17 11:33 05/11/17 12:03 Laboratory Results 05/11/17 05:45 05/11/17 05:45 05/10/17 05/11/17 05/12/17 05:59 05:59 05:59 Intake Total 2000 1400 Output Total 1450 775 300 Balance 550 625 -300 PT 14.3 SEC (12.0-15.0) 04/25/17 21:51 INR 1.09 (0.83-1.16) 04/25/17 21:51 CXR: Little change...perhaps worse LOULOU, better R lateral base. Images reviewed by me. Physical Exam - Physical Exam General Appearance: alert, mild distress EENT: normal ENT inspection Neck: normal inspection Respiratory: crackles Cardiac/Chest: tachycardia, No edema Abdomen: normal bowel sounds, non-tender Skin: normal color, warm/dry Extremities: normal inspection Neuro/Psych: alert, normal mood/affect, oriented x 3 ICD10 Worksheet Patient Problems: Problems Problem Status Onset Elevated troponin Acute Hematochezia Acute Hypoxia Acute Pneumonia Acute Pulmonary fibrosis Acute s/p LVATS lung biopsies Acute ~11/30/16 Chronic steroid use Chronic ILD (interstitial lung disease) Chronic
[2017-05-11] MEDS ORDERED: CANN-EASE 2 GM TUBE TP PRN (14:28)
--- NOTE | 2017-05-11 14:39 | ASMTCMCOM ---
CM Note CM Note Notes: Controller Instructor and RT working on lowering O2. Talked with family and patient re: LTAC and their locations and 30 day limit. Patient and family are hopeful to return home and asked to talk with a Hospice rep. Contacted [facility] for home and if needs changed they have the [facility]. [facility] will try to meet with patient and family this afternoon. Referral sent to [facility]. Date Signed: 05/11/2017 02:38 PM Electronically Signed By:Nyasia Marmolejo LCSW
[2017-05-11] MEDS: BENZONATATE 100 MG CAP PO SCH ×2 (15:50→20:59)
[2017-05-11] MEDS ORDERED: morphINE 10 MG/0.5 ML UDSYR PO PRN (15:51)
--- NOTE | 2017-05-11 15:51 | HOSPPROG ---
Hospitalist Progress Note Assessment/Plan: Assessment and plan # Acute on chronic hypoxic respiratory failure- 2/2 exacerbation of IPF along with acute human metapneumovirus infection. No significant response to Lasix. Likely nearing end of life. Palliative care involved. Discussed with pulm, RN , CM and RT. O2 requirement from 40 LPM to 20-25 LPM, but back up to 30 LPM with coughing fit. -change IV solumedrol to oral prednisone starting tomorrow -prn roxanol for air hunger -schedule robitussin and tessalon to help reduce coughing fits -prn xopenex nebs -cyclophosphamide per pulm -prn bipap -working on different O2 delivery methods to try to maintain at 20-25 LPM rather than 40 LPM as she cannot exceed 20 LPM at home # Pulmonary hypertension- PAP just 26 on recent RHC, may be increased from acute acute hypoxemia. -no further tx per pulm recs # Leukocytosis- fluctuating, suspect 2/2 steroids # Chest pain- Suspect chest wall pain 2/2 coughing vs GERD. ECG and trop reassuring, note clear cors on recent angiogram and also recent neg stress test. # GERD - cont PPI, along with home Zantac dose at night. -speech / swallow eval yesterday - no e/o aspiration # Hypothyroidism-continue current levothyroxine 75 mcg daily. # DVT prophylaxis- Lovenox. # Disposition- cont inpt, PT/OT. Continues to require high flow O2. Discussing hospice at home, pt wishes to be at home. Hospice eval today. Subjective: Pt is wearing out. She complains of air hunger, feeling like she can't get enough air. No fevers. Has episodes of coughing, with desats to 69%. Objective: Vital Signs Temp Pulse Resp BP Pulse Ox 36.3 C 107 H 33 H 117/81 H 91 L 05/11/17 15:02 05/11/17 15:02 05/11/17 15:02 05/11/17 15:02 05/11/17 15:02 Laboratory Results 05/11/17 05:45 05/11/17 05:45 05/10/17 05/11/17 05/12/17 05:59 05:59 05:59 Intake Total 1999 1400 Output Total 1450 775 300 Balance 550 625 -300 PT 14.3 SEC (12.0-15.0) 04/25/17 21:51 INR 1.09 (0.83-1.16) 04/25/17 21:51 - Physical Exam Constitutional: no apparent distress Eyes: PERRL Ears, Nose, Mouth, Throat: moist mucous membranes Cardiovascular: regular rate and rhythym Respiratory: reduced air movement, inspiratory crackles Gastrointestinal: normoactive bowel sounds, soft, non-tender abdomen Skin: warm Musculoskeletal: full muscle strength Neurologic: AAOx3 Psychiatric: interacting appropriately ICD10 Worksheet Patient Problems: Problems Problem Status Onset Elevated troponin Acute Hematochezia Acute Hypoxia Acute Pneumonia Acute Pulmonary fibrosis Acute s/p LVATS lung biopsies Acute ~11/30/16 Chronic steroid use Chronic ILD (interstitial lung disease) Chronic
[2017-05-11] MEDS: GUAIFENESIN/DM 10 ML UDCUP PO SCH ×2 (18:05→20:59)
[2017-05-11] MEDS: ASPIRIN 81 MG CHEWABLE TAB PO SCH (20:59)
[2017-05-11] MEDS: FAMOTIDINE 20 MG TAB PO SCH (20:59)
[2017-05-11] MEDS: ALPRAZolam 0.25 MG TAB PO PRN (22:10)
[2017-05-12] MEDS ORDERED: LORazepam 2 MG/ML INJ IVP PRN (03:18)
[2017-05-12 04:33] LABS: PLATELET COUNT 200 10^3/uL (150-400)
[2017-05-12] MEDS: LEVALBUTEROL 1.25 MG/3 ML DEYVIAL IH SCH ×4 (05:26→20:31)
[2017-05-12] MEDS: HYDROCODONE/APAP 5/325 TAB PO PRN (05:50)
[2017-05-12] MEDS: GUAIFENESIN/DM 10 ML UDCUP PO SCH ×6 (05:50→20:39)
[2017-05-12] MEDS: LEVOTHYROXINE 75 MCG TAB PO SCH (05:50)
[2017-05-12] MEDS: ALPRAZolam 0.25 MG TAB PO PRN (06:00)
[2017-05-12] MEDS ORDERED: POTASSIUM CL 10 MEQ TAB PO ONE (08:00)
--- NOTE | 2017-05-12 08:11 | CPEKG ---
Heart Rate: 103 RR Interval: 583 P-R Interval: 120 QRSD Interval: 98 QT Interval: 344 QTC Interval: 451 P [place]: 44 QRS [place]: -37 T Wave [place]: 140 EKG Severity - ABNORMAL ECG - EKG Impression: SINUS TACHYCARDIA EKG Impression: MULTIPLE ATRIAL PREMATURE COMPLEXES EKG Impression: LEFT AXIS DEVIATION EKG Impression: LVH WITH SECONDARY REPOLARIZATION ABNORMALITY EKG Impression: LEFT ANTERIOR FASCICULAR BLOCK Electronically Signed By: Mil Zamora 12-May-2017 09:18:59
[2017-05-12] MEDS ORDERED: predniSONE 20 MG TAB PO SCH (09:00)
--- NOTE | 2017-05-12 10:09 | HOSPPROG ---
Hospitalist Progress Note Assessment/Plan: Assessment and plan # Acute on chronic hypoxic respiratory failure- 2/2 exacerbation / decline of chronic IPF along with acute human metapneumovirus infection. No significant response to Lasix. Likely nearing end of life. Palliative care involved. Hospice eval yest. Discussed with pulm, RN, CM and RT. O2 requirement 43 LPM currently, has frequent coughing fits. -changing IV solumedrol to oral prednisone -prn roxanol for air hunger -cont scheduled robitussin and tessalon to help reduce coughing fits -xopenex nebs -cyclophosphamide per pulm -prn bipap -see goals of care discussion below, basically needs comfort care at this point # Pulmonary hypertension- PAP just 26 on recent RHC, may be increased from acute acute hypoxemia. -no further tx per pulm recs # Leukocytosis- fluctuating, suspect 2/2 steroids # Chest pain- Suspect chest wall pain 2/2 coughing vs GERD. ECG and trop reassuring, note clear cors on recent angiogram and also recent neg stress test. # GERD - cont PPI, along with home Zantac dose at night. -speech / swallow eval done - no e/o aspiration # Hypothyroidism-continue current levothyroxine 75 mcg daily. # DVT prophylaxis- Lovenox. # Disposition- cont inpt # Goals of care: Pt is DNR. Hospice eval yesterday. Barrier to home hospice is inability to provided 40+ LPM O2 at home. 30 minutes spent at bedside today with pt, and son. Pt defers to family wishes, too tired to make end-of- life decisions. is bargaining, "why can't we provide the amount of O2 she needs at home with all our technology". He is asking for LTAC options vs transfer to [facility]. I don't think she is stable for transfer to [facility] at this time and have explained to family I believe she is nearing end of life. Inpt hospice vs inpt comfort care measures are likely most appropriate at this time. Subjective: Pt is quite tired today, wearing out. Objective: Vital Signs Temp Pulse Resp BP Pulse Ox 36.6 C 108 H 20 144/98 H 89 L 05/12/17 08:00 05/12/17 08:00 05/12/17 08:00 05/12/17 08:00 05/12/17 08:00 Laboratory Results 05/12/17 04:20 05/12/17 04:20 05/11/17 05/12/17 05/13/17 05:59 05:59 05:59 Intake Total 1400 500 Output Total 775 1150 Balance 625 -1150 500 PT 14.3 SEC (12.0-15.0) 04/25/17 21:51 INR 1.09 (0.83-1.16) 04/25/17 21:51 - Physical Exam Constitutional: chronically ill appearing, uncomfortable Eyes: PERRL Ears, Nose, Mouth, Throat: moist mucous membranes Cardiovascular: tachycardia Respiratory: reduced air movement, inspiratory crackles, respiratory distress Gastrointestinal: normoactive bowel sounds, soft, non-tender abdomen Skin: warm Musculoskeletal: full muscle strength Neurologic: AAOx3 Psychiatric: interacting appropriately ICD10 Worksheet Patient Problems: Problems Problem Status Onset Elevated troponin Acute Hematochezia Acute Hypoxia Acute Pneumonia Acute Pulmonary fibrosis Acute s/p LVATS lung biopsies Acute ~11/30/16 Chronic steroid use Chronic ILD (interstitial lung disease) Chronic
[2017-05-12] MEDS: ENOXAPARIN 40 MG/0.4 ML SYR SC SCH (11:16)
[2017-05-12] MEDS: SENNOSIDES/DOCUSATE SODIUM TAB PO SCH ×2 (11:17→20:38)
[2017-05-12] MEDS: FUROSEMIDE 40 MG/4 ML VIAL IVP SCH ×3 (11:18→16:12)
[2017-05-12] MEDS: BENZONATATE 100 MG CAP PO SCH ×3 (11:18→20:39)
[2017-05-12] MEDS: PANTOPRAZOLE SODIUM 40 MG TAB PO SCH (11:23)
[2017-05-12 12:00] VITALS: BP 90/58
--- NOTE | 2017-05-12 13:30 | PDINTPN ---
Inpatient Nursing Aide Progress Note Assessment/Plan: Assessment: 71 F with well -established IPF (FVC 58%) complicated by GERD and followed by Dr. Gillis admitted 04/25/17 with acute exacerbation thought to be 2/2 human metapneumovirus and requiring high flow O2. Her baseline was 2-3 lpm after recovering from [place] in 2015 (?) with a stable HRCT 06/2016, but her CT 2016 was worse despite systemic steroids. In 11/2016 she underwent VATS biopsy ( after unremarkable TBBx 09/2016) showing only UIP and her O2 requirement was up to 6 lpm on the DOA. She had recently started nintedanib and had several GI complaints. She was treated with IV steroids, levaquin, and vapotherm, but has not had a significant reduction in O2 needs. * IPF with acute exacerbation, possibly mediated by hMPV. OPportunistic infection such as PCP possible but quite unlikely given lacof fever. Additionally, performing a bronchoscopy would be quite high-risk. Completed 5 days of high dose steroids (250 qid), now down to 60/day (1 mg/kg). Started lasix 05/03 and felt better, though O2 requirement unchanged. Lasix held 05/05 and O2 requirement increased to 40 lpm+100% vapotherm; with occasional NRB to keep sat >90. Tolerated first dose of cyclophosphamide- monitor effect and consider 1000 mg in 2 weeks. Additional lasix resulted in symptomatic improvement, but still no change in O2 requirement 05/07. Palliative care saw her already. Tried bipap for comfort 05/08 without success, so suggested she could try it again if she requests. Oxygen turned down to 20-25 liters/minute yesterday afternoon, she tolerated OK with sats mid-80s. Today she is less responsive, HR sustained 100-125, sats mid-upper 80s on high flow O2, and she's less responsive. She is no longer appropriate for transfer, and I think shes unable to survive more than 24-48 hours. * PH- She had mild PH on RHC 04/16/17 with a mean PAP of only 26 and PVR of 4.8 eric units. Her jump in sPAP on her current echo is likely driven in part by her acute hypoxemia and probably overestimates her true pressure. This underscores the issue of NOT attempting PH-specific therapies. * Nintedanib (Ofev) is designed to reduce the progression of IPF and has no role in acute exacerbations. * GERD- currently taking protonix and MOM and stable. * Plan: I recommended that we emphasize comfort over maintaining oxygen saturations. Would not pursue transfer. Morphine IV since unable to take even small amounts of PO. 05/11/17 13:48 05/12/17 13:22 Subjective: Dyspneic Objective: Vital Signs Temp Pulse Resp BP Pulse Ox 36.4 C 116 H 31 H 90/58 L 85 L 05/12/17 11:57 05/12/17 11:57 05/12/17 11:57 05/12/17 11:57 05/12/17 11:57 Laboratory Results 05/12/17 04:20 05/12/17 04:20 05/11/17 05/12/17 05/13/17 05:59 05:59 05:59 Intake Total 1400 500 Output Total 775 1150 Balance 625 -1150 500 PT 14.3 SEC (12.0-15.0) 04/25/17 21:51 INR 1.09 (0.83-1.16) 04/25/17 21:51 Physical Exam - Physical Exam General Appearance: moderate distress, other (less alert) EENT: normal ENT inspection ICD10 Worksheet Patient Problems: Problems Problem Status Onset Elevated troponin Acute Hematochezia Acute Hypoxia Acute Pneumonia Acute Pulmonary fibrosis Acute s/p LVATS lung biopsies Acute ~11/30/16 Chronic steroid use Chronic ILD (interstitial lung disease) Chronic
[2017-05-12] MEDS: CHOLECALCIFEROL VIT D3 2,000 UNITS TAB/CAP PO SCH (14:22)
--- NOTE | 2017-05-12 14:43 | ASMTCMCOM ---
CM Note CM Note Notes: Met with [facility] regarding patient and they did meet with the patient and family yesterday. [facility] is prepared to have their admissions rep come today if needed. Patient is no longer appropriate for transfer however, and Dr. Doyle feels she is unable to survive more than 24-48 hours. [facility] was notified. Patient has been put on comfort measures here at the hospital. CM will follow. Date Signed: 05/12/2017 02:43 PM Electronically Signed By:Emma Dowd LCSW
[2017-05-12] MEDS: FAMOTIDINE 20 MG TAB PO SCH (20:38)
[2017-05-12] MEDS: ASPIRIN 81 MG CHEWABLE TAB PO SCH (20:38)
--- NOTE | 2017-05-13 11:41 | PDINTPN ---
Test Deskman Progress Note Assessment/Plan: Assessment: 71 F with well -established IPF (FVC 58%) complicated by GERD and followed by Dr. Gillis admitted 04/25/17 with acute exacerbation thought to be 2/2 human metapneumovirus and requiring high flow O2. Her baseline was 2-3 lpm after recovering from [place] in 2015 (?) with a stable HRCT 06/2016, but her CT 2016 was worse despite systemic steroids. In 11/2016 she underwent VATS biopsy ( after unremarkable TBBx 09/2016) showing only UIP and her O2 requirement was up to 6 lpm on the DOA. She had recently started nintedanib and had several GI complaints. She was treated with IV steroids, levaquin, and vapotherm, but has not had a significant reduction in O2 needs. * IPF with acute exacerbation, possibly mediated by hMPV. OPportunistic infection such as PCP possible but quite unlikely given lacof fever. Additionally, performing a bronchoscopy would be quite high-risk. Completed 5 days of high dose steroids (250 qid), now down to 60/day (1 mg/kg). Started lasix 05/03 and felt better, though O2 requirement unchanged. Lasix held 05/05 and O2 requirement increased to 40 lpm+100% vapotherm; with occasional NRB to keep sat >90. Tolerated first dose of cyclophosphamide- monitor effect and consider 1000 mg in 2 weeks. Additional lasix resulted in symptomatic improvement, but still no change in O2 requirement 05/07. Palliative care saw her already. Today she remains less responsive, HR sustained 100-125, sats mid- upper 80s on high flow O2, and she's less responsive. She is no longer appropriate for transfer, and I think shes unable to survive more than 24-48 hours. * PH- She had mild PH on RHC 04/16/17 with a mean PAP of only 26 and PVR of 4.8 eric units. Her jump in sPAP on her current echo is likely driven in part by her acute hypoxemia and probably overestimates her true pressure. This underscores the issue of NOT attempting PH-specific therapies. * Nintedanib (Ofev) is designed to reduce the progression of IPF and has no role in acute exacerbations. * GERD- currently taking protonix and MOM and stable. * Plan: I believe that her in imminent. Discussed with family, and they would like to be fully in a comfort care mode. No need to transfer to floor, they are comfortable here. Likely will progressively turn down oxygen, take off if patient desires for comfort. 30 minutes, >50% counseling/coordinating. 05/13/17 11:37 Subjective: Less responsive, come agitation with coughing. Objective: Vital Signs Temp Pulse Resp BP Pulse Ox 36.4 C 118 H 26 H 90/58 L 86 L 05/12/17 11:57 05/13/17 08:17 05/13/17 08:17 05/12/17 11:57 05/13/17 08:17 Laboratory Results 05/12/17 04:20 05/12/17 04:20 05/12/17 05/13/17 05/14/17 05:59 05:59 05:59 Intake Total 1100 Output Total 1150 450 Balance -1150 650 PT 14.3 SEC (12.0-15.0) 04/25/17 21:51 INR 1.09 (0.83-1.16) 04/25/17 21:51 Physical Exam - Physical Exam General Appearance: no apparent distress, No alert ICD10 Worksheet Patient Problems: Problems Problem Status Onset Elevated troponin Acute Hematochezia Acute Hypoxia Acute Pneumonia Acute Pulmonary fibrosis Acute s/p LVATS lung biopsies Acute ~11/30/16 Chronic steroid use Chronic ILD (interstitial lung disease) Chronic
--- NOTE | 2017-05-13 15:07 | HOSPPROG ---
Hospitalist Progress Note Objective: Vital Signs Temp Pulse Resp BP Pulse Ox 36.4 C 118 H 26 H 90/58 L 86 L 05/12/17 11:57 05/13/17 08:17 05/13/17 08:17 05/12/17 11:57 05/13/17 08:17 Laboratory Results 05/12/17 04:20 05/12/17 04:20 05/12/17 05/13/17 05/14/17 05:59 05:59 05:59 Intake Total 1100 Output Total 1150 450 Balance -1150 650 PT 14.3 SEC (12.0-15.0) 04/25/17 21:51 INR 1.09 (0.83-1.16) 04/25/17 21:51 ICD10 Worksheet Patient Problems: Problems Problem Status Onset Pneumonia Acute Hypoxia Acute Elevated troponin Acute Hematochezia Acute Pulmonary fibrosis Acute s/p LVATS lung biopsies Acute ~11/30/16 Chronic steroid use Chronic ILD (interstitial lung disease) Chronic
--- NOTE | 2017-05-13 18:36 | PDDCSUM ---
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 Attempted to reverse this with various tx including steroids, lasix, cyclophosphamide and has been on 40L Vapotherm. As of today, family recognizes that patient is unlikely to recover and transitioned to full comfort care. O2 was turned down and patient rapidly . # Pulmonary hypertension- PAP just 26 on recent RHC # Leukocytosis- fluctuating, suspect 2/2 steroids # Chest pain- Suspect chest wall pain 2/2 coughing vs GERD. ECG and trop reassuring, note clear cors on recent angiogram and also recent neg stress test. # GERD - [facility] was following, on PPI, no e/o aspiration # Hypothyroidism-continue current levothyroxine 75 mcg daily. # DVT prophylaxis- Lovenox. # Disposition- patient at 1448 on 05/13/17 with family present at bedside Dc required > 35 min of care more than half in coordination of care
--- NOTE | 2017-05-17 14:08 | PQFORM ---
PHYSICIAN QUERY FORM Needs Your Response This query form is being sent to you to assure this patient record is coded properly. Please respond to the question below: CARVER HAND QUESTION: Dear Dr. Solitario, In reviewing this patients medical record it is noted the patient had the diagnosis of NSTEMI. Patient presented with shortness of breath and elevated troponin. Noted in the H&P Dr. Pearce states patient "likely represents type 2 CA in stetting of demand due to hypoxia." In Hospitalist Progress Notes dated -05/07 Dr. Garza, Dr. Valerio, and Dr. Oakley notes "NSTEMI, demand w/ hypoxemia." Patient also had chest pain. After study should the diagnosis of "Non-ST elevation myocardial infarction" be included in the Discharge summary? Yes No Unable to determine Other more appropriate diagnosis Thank you WALKER Stein [facility]/Coding Dept. [phone] INSTRUCTIONS FOR RESPONSE: Answer question by clicking on the "Edit Document" button. Move cursor to area below the stars. When complete, hit "Save." Click on the "Sign" button, then click "Sign" again. Type in your PIN and hit "Enter." MTDD
--- NOTE | 2017-05-17 14:21 | PQFORM ---
PHYSICIAN QUERY FORM Needs Your Response This query form is being sent to you to assure this patient record is coded properly. Please respond to the question below: CAT SKINNER QUESTION: Dear Dr. Rhodes, In reviewing this patients medical record it was noted the patient had the diagnosis of "Pneumonia." Patient presented with Shortness of breath. The ER reports diagnosis patient with Pneumonia. H&P states "Bilateral pneumonia." Dr. Magallanes's Administrative Aide progress notes dated 04/28-05/02 states patient has "diffuse pneumonia-likely viral w/ growth of Metapneumovirus." In chest X-ray' s dated 04/25-05/11 patient had "pneumonitis superimposed upon IPF." After Study , should the diagnosis of "Pneumonia Viral due to Metapneumovirus" be included in the Discharge summary? x Yes No Unable to determine Other more appropriate diagnosis Thank you WALK[facility]/Coding Dept. [phone] INSTRUCTIONS FOR RESPONSE: Answer question by clicking on the "Edit Document" button. Move cursor to area below the stars. When complete, hit "Save." Click on the "Sign" button, then click "Sign" again. Type in your PIN and hit "Enter." MTDD
== END 2017-05-13 16:59 | disposition expired | DRG 189 ==
LOC: EDUNIT# → F2N 23:46
PROVIDERS: ADMIT Family Medicine; ATTEND Family Medicine
PROC: 02HV33Z Insertion of Infusion Device into Superior Vena Cava, Percutaneous Approach (ICD-10-PCS; principal; 2017-05-02)
DX: J96.21 Acute and chronic respiratory failure with hypoxia (principal); J12.3 Human metapneumovirus pneumonia; I21.A1 Myocardial infarction type 2; I27.20 Pulmonary hypertension, unspecified; J84.112 Idiopathic pulmonary fibrosis; I95.89 Other hypotension; R07.89 Other chest pain; K21.9 Gastro-esophageal reflux disease without esophagitis; E03.9 Hypothyroidism, unspecified; I10 Essential (primary) hypertension; Z51.5 Encounter for palliative care; Z99.81 Dependence on supplemental oxygen; Z66 Do not resuscitate
CPT/HCPCS: 92610-GN; 96365; 97110-GO; 97110-GP; 97161-GP; 97165-GO; 97530-GP; 97535-GO; C1751; G8987-GO-CJ; G8988-GO-CI; G8996-GN-CH; G8997-GN-CH; G8998-GN-CH; J1170; J1650; J1940; J1956; J2060; J2270; J2405; J2920; J2930; J2997; J3475; J7512; J9070